=== PATIENT | female | born 1960 | race African-American/Black ===

== ENCOUNTER 2020-09-12 06:20 | Inpatient (IN) | payer MEDICARE ==
[2020-09-12] MEDS ORDERED: Ondansetron PF 4 MG/2 ML Vial ONE (06:54)
[2020-09-12] MEDS ORDERED: Morphine 4 MG/ML VIAL ONE (06:54)
[2020-09-12 07:03] LABS: #Basophils 0.1 thou/uL (0.0-0.2); #Eosinphils 0.1 thou/uL (0.0-0.7); #Lymphocytes 1.4 thou/uL (1.20-3.40); #Monocytes 0.3 thou/uL (0.11-0.59); #Neutrophils 4.2 thou/uL (1.40-6.50); %Basophils 1.4 % (0.0-1.0); %Eosinophils 1.3 % (0.0-10.0); %Lymphocytes 23.8 % (21.0-51.0); %Monocytes 4.5 % (0.0-10.0); Hemoglobin 10.9 g/dL (12.0-16.0); Mean Corpuscular HGB CONC 31.3 g/dL (32.0-36.0); Mean Corpuscular Hemoglobin 23.8 pg (27.0-31.0); Mean Platelet Volume 8.6 fL (7.4-10.4); Platelet Count 206 thou/uL (130-400); RBC Distribution Width 13.8 % (11.5-14.5); Red Blood Cell (RBC) Count 4.59 mill/uL (4.20-5.40)
[2020-09-12 07:27] LABS: ALT (SGPT) 19 U/L (8-55); AST (SGOT) 33 U/L (5-34); Albumin 3.6 g/dL (3.4-4.8); Alkaline Phosphatase 109 U/L (40-110); Anion Gap 13 mmol/L (10-20); BUN (Urea Nitrogen) 22 mg/dL (9.8-20.1); Bilirubin, Total 0.3 mg/dL (0.2-1.2); Calc. Creatinine Clearance 0 mL/min (70-130); Calcium 10.1 mg/dL (7.8-10.44); Carbon Dioxide 20 mmol/L (23-31); Chloride 107 mmol/L (98-107); Estimated GFR-MDRD 50; Globulin 3.9 g/dL (2.4-3.5); Glucose 183 mg/dL (80-115); Lipase 72 U/L (8-78); Potassium 5.2 mmol/L (3.5-5.1); Protein, Total 7.5 g/dL (6.0-8.3); Sodium 135 mmol/L (136-145)
[2020-09-12 07:29] LABS: Bacteria/HPF None Seen HPF (None Seen); Bilirubin Negative (Negative); Blood, Urine Trace (Negative); Clarity Clear (Clear); Glucose, Urine (Dipstick) Normal (Negative); Ketone, Urine Negative (Negative); Leukocyte Negative Leu/uL (Negative); Nitrite Negative (Negative); Protein, Urine (Dipstick) 100 mg/dL (Neg-Trace); RBC/HPF 0-3 HPF (0-3); Specific Gravity, Urine 1.019 (1.002-1.036); Squamous Epithelial None Seen HPF (0-3); Urobilinogen Normal mg/dL (Less than 2); WBC/HPF 0-3 HPF (0-3)
--- NOTE | 2020-09-12 08:07 | CT ---
CT ABDOMEN WITH CONTRAST CT PELVIS WITH CONTRAST: DATE: 09/12/2020 HISTORY: 60-year-old female with diffuse abdominal pain, nausea, and vomiting. COMPARISON: 05/21/2019. TECHNIQUE: IV injection of iodinated contrast media: administered. Oral contrast media:Not administered FINDINGS: Whereas previously there was a short loop of bowel slightly to the right of midline at the ventral he rnia, now there is a short loop of bowel slightly to the left of midline at a new ventral hernia where there is a suture line. The efferent loop and all distal ileal loops are collapsed, while the a fferent loop and proximal loops aren't dilated. Afferent dilated small bowel loop is fecal size. More proximal small bowel loops are filled with air and fluid. Caliber of 3 cm. Suture line along narrowed gastric channel. No major pathology identified involving liver, kidneys, pancreas, spleen, abdominal aorta, appendix, or urinary bladder. There is a 1.5 cm left adrenal nodule, unchanged. No ascites or pneumoperitoneum. No pleural effusion or basilar pulmonary consolidation. IMPRESSION: 1. Small bowel obstruction at ventral hernia. 2.. Status post vertical sleeve gastrectomy.
[2020-09-12] MEDS ORDERED: Midazolam HCl 2 mg/2 ml Vial ONE (09:02)
--- NOTE | 2020-09-12 10:09 | RAD ---
EXAM: Single view of the chest HISTORY: Diffuse abdominal pain with nausea and vomiting COMPARISON: 05/21/[address] abdomen/pelvis 09/12/2020 FINDINGS: Single view of the chest shows an enlarged cardiomediastinal silhouette. The lung apices ar e excluded. The patient is status post sternotomy. An NG tube is seen with its tip in the stomach. No free air is seen beneath the hemidiaphragms. There is no evidence of consolidation, mass, or pleur al effusion. Degenerative changes are seen in the spine. IMPRESSION: NG tube located in the stomach.
[2020-09-12] MEDS ORDERED: Iopamidol-370 76% 500 ML 1 ML ONE (10:44)
[2020-09-12] MEDS ORDERED: Morphine 2 MG/ML VIAL SLOW IVP PRN (10:50)
[2020-09-12] MEDS ORDERED: Insulin Regular 300 UNITS/3 ML VIAL SC PRN (10:50)
[2020-09-12] MEDS ORDERED: Promethazine HCl 25 MG/ML VIAL IM PRN (10:50)
[2020-09-12] MEDS ORDERED: hydrALAZINE 20 MG/ML VIAL SLOW IVP PRN (10:50)
[2020-09-12] MEDS ORDERED: cefOXitin 2 GM in Sodium Chloride 0.9% 100 ML IVPB SCH (11:00)
--- NOTE | 2020-09-12 12:41 | HP ---
CHIEF COMPLAINT: Nausea, vomiting, and abdominal pain. HISTORY OF PRESENT ILLNESS: The patient is a 60-year-old morbidly obese female who a year ago had incarcerated ventral hernia repaired while she was on Eliquis and she had to be returned to the OR for massive bleeding, 8-unit bleed. She is still on Eliquis. She said that over the last couple of months, she has been having intermittent bloating and then developed severe pain over the last 24 hours. She had a small bowel movement this morning. It has been at least 2 days since she passed flatus. She last took Eliquis last night. PAST MEDICAL HISTORY: Morbid obesity, diabetes, hypertension, atrial fibrillation, coronary artery disease, fibromyalgia, sleep apnea, and she has had a pulmonary embolus. PAST SURGICAL HISTORY: Includes CABG, sleeve gastrectomy, and ventral hernia repairs. MEDICATIONS: Include: 1. Eliquis. 2. Alprazolam. PHYSICAL EXAMINATION: VITAL SIGNS: She is afebrile, pulse 63, blood pressure 179/80. GENERAL: Morbidly obese. HEENT: She has a small NG tube in her nose, draining minimal fluid. LUNGS: Clear. HEART: Regular rate and rhythm. ABDOMEN: Obese and soft. She has swelling just above the umbilicus underneath a well-healed surgical scar. Mildly tender, not reducible. DIAGNOSTIC DATA: The CT scan shows a high-grade small bowel obstruction. No evidence of strangulation. CT scan again that shows obstruction. LABORATORY DATA: White count 6, H and H 10 and 34, platelet count 206. potassium of 5.2, glucose of 183. Creatinine was 1.3. ASSESSMENT: Small bowel obstruction and anticoagulation. PLAN: Admit. NG suction in the morning unless she gets sicker than, we opted to take her tonight. Check her COVID status. I called Dr. Thompson, Cardiothoracic Surgery regarding a perioperative filter. He did not feel like that was necessary that we should probably consider just low-dose Lovenox perioperatively. Job ID: [id number]
[2020-09-12] MEDS ORDERED: cefOXitin Sodium/Dextrose,Iso 2 GM in Premix Bag 1 BAG IVPB SCH (13:00)
[2020-09-12] MEDS: Ondansetron PF 4 MG/2 ML Vial IVP PRN (13:48)
[2020-09-12] MEDS: Morphine 4 MG/ML VIAL SLOW IVP PRN ×3 (14:18→23:07)
[2020-09-12 14:47] VITALS: BMI 35.6
--- NOTE | 2020-09-12 14:48 | PDOC.HOSPP ---
- Subjective Encounter Date: 09/12/20 Encounter Time: 13:45 Subjective: Patient up in bed states that she has been having abdominal pain going from on for about a month however for the last few days her abdominal pain has gotten worse. She also complains of nausea vomiting which has worsened in the past couple days. She denies any fevers or chills. She states that she has been having limited bowel movement. Patient's last Eliquis dose was last night. She states that she has had a temporary IVC filter which was then removed. - Objective Result Diagrams: 09/12/20 06:54 09/12/20 06:54 Hospitalist ROS - Review of Systems Cardiovascular: denies: chest pain, palpitations, orthopnea, paroxysmal noc. dyspnea, edema, light headedness, other Gastrointestinal: reports: nausea, vomiting, abdominal pain, constipation. denies: diarrhea, melena, hematochezia, other - Medication Medications: Active Medications Generic Name Dose Route Start Last Admin Trade Name Freq PRN Reason Stop Dose Admin Morphine Sulfate 4 mg 09/12/20 10:50 09/12/20 14:18 Morphine 4 Mg/Ml Vial SLOW IVP 4 mg Q2H PRN Administration Moderate Pain (4-6) Ondansetron HCl 4 mg 09/12/20 10:50 09/12/20 13:48 Ondansetron Pf 4 Mg/2 Ml Vial IVP 4 mg Q6H PRN Administration Nausea/Vomiting - Exam Neck: negative: supple, symmetric, no JVD, no thyromegaly, no lymphadenopathy, no carotid bruit, JVD Heart: negative: RRR, no murmur, no gallops, no rubs, normal peripheral pulses, irregular, diminshed peripheral pulses, murmur present, II/IV, III/IV Respiratory: negative: CTAB, no wheezes, no rales, no ronchi, normal chest expansion, no tachypnea, normal percussion, rales, rhonchi, tachypneic, wheezes Gastrointestinal: soft, diminished bowl sounds Gastrointestinal - other findings: Mild abdominal pain on palpation all over. Extremities: 1+ LE edema Hosp A/P (1) Abdominal pain Code(s): R10.9 - UNSPECIFIED ABDOMINAL PAIN Status: Acute (2) Small bowel obstruction Code(s): K56.609 - UNSP INTESTNL OBST, UNSP TO PARTIAL VERSUS COMPLETE OBST Status: Acute (3) A-fib Code(s): I48.91 - UNSPECIFIED ATRIAL FIBRILLATION Status: Acute (4) Postoperative haemorrhage Code(s): VSB6376 - Status: Acute (5) Postoperative haemorrhage Code(s): VUB4481 - Status: Acute (6) Pulmonary embolism Code(s): I26.99 - OTHER PULMONARY EMBOLISM WITHOUT ACUTE COR PULMONALE Status: Acute (7) Diabetes Code(s): E11.9 - TYPE 2 DIABETES MELLITUS WITHOUT COMPLICATIONS Status: Acute (8) CAD (coronary artery disease) Code(s): I25.10 - ATHSCL HEART DISEASE OF [place] CORONARY ARTERY W/O ANG PCTRS Status: Acute - Plan Patient has had pulmonary embolism in 2002 according to her she states it was post surgery. She also has a history of atrial fibrillation underwent an ablation in 2014. She follows up with cardiology and electrophysiology. Patient currently is in normal sinus rhythm. She is on Eliquis 2.5 twice daily. Per records indicates that patient was on anticoagulation unclear if she was on Coumadin or Eliquis this was in May 2019. She underwent emergent surgery for incarcerated umbilical hernia. Postoperative her hospital course was complicated with massive bleeding. I will hold her Eliquis for now. She is currently in sinus rhythm. We will put on SCDs for now. She has been encouraged to ambulate. I believe Lovenox for DVT prophylaxis should be okay until surgeon is okay to resume anticoagulation.
[2020-09-12] MEDS ORDERED: Dextrose 50% Abboject 50 ML SYRINGE SLOW IVP PRN (14:50)
[2020-09-12] MEDS ORDERED: Dextrose 5% in Water 1,000 ML IV PRN (14:50)
--- NOTE | 2020-09-12 15:22 | RAD ---
XR Abdomen 1 View/KUB History: NG tube placement Comparison: Radiograph May 26, 2019 Findings: Enteric tube tip in gastric body. Mildly distended loops of small bowel throughout the abdo men. Multiple midline sternotomy wires. Evaluation for free air is limited without an upright exam. Lucenc y along the right lower hemiabdomen may be due to asymmetric increased fat along the right paracolic gutter. Impression: Enteric tube tip gastric body/fundus in good position.
[2020-09-12] MEDS: Sodium Chloride 0.9% 1,000 ML IV SCH (16:00)
[2020-09-12] MEDS: Famotidine/PF 20 mg/2ml Vial SLOW IVP SCH (20:07)
[2020-09-12] MEDS: Famotidine 20 MG TAB PO SCH (20:45)
--- NOTE | 2020-09-12 22:20 | CON ---
DATE OF CONSULTATION: HISTORY OF PRESENT ILLNESS: The patient is a very pleasant 60-year-old woman with history of coronary artery bypass surgery, who presented with abdominal discomfort and needs to undergo surgery. The patient has a previous history of coronary artery disease. She had coronary artery bypass graft surgery x4, BARRETT to the LAD, radial graft to a diagonal, saphenous vein graft to ramus and RCA. The patient has subsequently done very well. She did develop atrial fibrillation. She underwent radiofrequency ablation for atrial fibrillation. The patient has been on chronic medical therapy. She presented with abdominal discomfort and needs to undergo surgery. The patient denies having any chest pain or dyspnea. PAST MEDICAL HISTORY: 1. Coronary artery disease. 2. Diabetes mellitus. 3. History of pulmonary embolus. 4. Sleep apnea. PAST SURGICAL HISTORY: Hernia surgery, , coronary artery bypass surgery,and gastric sleeve surgery. ALLERGIES: NONE. MEDICATIONS: See nursing list. FAMILY HISTORY: Positive family history of coronary artery disease. PHYSICAL EXAMINATION: GENERAL AND VITAL SIGNS: This is an obese woman, in no acute distress with a blood pressure of 136/70. NECK: No jugular venous distention. LUNGS: Clear to auscultation. HEART: Regular rate and rhythm. Normal S1 and S2. No murmurs. ABDOMEN: Distended. EXTREMITIES: Showed trace edema. LABORATORY DATA: Sodium 135, potassium 4.2, chloride 107, bicarbonate 20, BUN 22, creatinine 1.3, glucose 183. White blood cell count 6.0, hemoglobin 10.9, hematocrit 34.9, and platelets 206. EKG reveals normal sinus rhythm with poor R-wave progression. No acute ST-T wave changes. IMPRESSION: 1. Small bowel obstruction. 2. History of coronary artery bypass surgery x4. 3. History of atrial fibrillation. 4. Hypertension. 5. Renal insufficiency. 6. Diabetes mellitus. 7. Dyslipidemia. This patient presents with abdominal discomfort and needs to undergo surgery. This patient has previously undergone gastric bypass surgery and probably has adhesions. From a cardiac standpoint, I would be hesitant to proceed with surgery unless absolutely necessary before Eliquis is out of her system. It is recommended to be off at least 48 hours and preferably 72 hours. I will discuss this with Dr. Woodruff. We will follow this patient with you through her hospitalization. Job ID: [id number] [facility]
[2020-09-12 23:45] LABS: SARS-CoV-2 MS2 Positive; SARS-CoV-2 N Gene Negative; SARS-CoV-2 S Gene Negative; SARS-CoV-2 by NAA Not Detected (NotDetected); SARS-CoV-2 orf1ab Negative
[2020-09-13] MEDS: Morphine 4 MG/ML VIAL SLOW IVP PRN (04:40)
[2020-09-13] MEDS: Sodium Chloride 0.9% 1,000 ML IV SCH ×3 (04:41→16:29)
[2020-09-13] MEDS: Ondansetron PF 4 MG/2 ML Vial IVP PRN (05:00)
[2020-09-13 07:03] LABS: Hemoglobin 9.9 g/dL (12.0-16.0); Mean Corpuscular HGB CONC 30.4 g/dL (32.0-36.0); Mean Corpuscular Hemoglobin 23.7 pg (27.0-31.0); Mean Corpuscular Volume 78.1 fL (78.0-98.0); Mean Platelet Volume 8.1 fL (7.4-10.4); Platelet Count 164 thou/uL (130-400); RBC Distribution Width 13.9 % (11.5-14.5); Red Blood Cell (RBC) Count 4.19 mill/uL (4.20-5.40); White Blood Cell (WBC) Count 5.6 thou/uL (4.8-10.8)
[2020-09-13] MEDS ORDERED: Lidocaine 1% w/Epinephrine 1:100K 20 ML VIAL ONE (07:06)
[2020-09-13] MEDS ORDERED: Bupivacaine 0.25% HCL 30 ML VIAL ONE (07:06)
[2020-09-13 07:14] LABS: Anion Gap 9 mmol/L (10-20); BUN (Urea Nitrogen) 11 mg/dL (9.8-20.1); Calc. Creatinine Clearance 93 mL/min (70-130); Calcium 9.6 mg/dL (7.8-10.44); Carbon Dioxide 23 mmol/L (23-31); Chloride 113 mmol/L (98-107); Estimated GFR-MDRD 69; Glucose 81 mg/dL (80-115); Sodium 141 mmol/L (136-145)
[2020-09-13 07:56] LABS: Band 1 % (5-11); Eosinophils 3 % (0-10); Hypochromia SLIGHT = 6-15 cells (100X) (0-5/hpf); Lymphocytes 50 % (21-51); MDiff Complete? YES; Monocytes 9 % (0-10); Neutrophil 35 % (42-75); Platelet Morphology Comment Appears Adequate; Polychromasia SLIGHT = 2-3 cells (100X) (0-2/hpf)
--- NOTE | 2020-09-13 08:29 | PDOC.GSPN ---
Surgery Progress Note: Subj - Subjective Patient reports: no new complaints, positive flatus, nausea, no bowel movement Narrative: Ms. Crespo denies worsening of abdominal pain since yesterday. She states that her pain is currently 8/10 in severity with morphine 4 mg (08/12 yesterday). She passed flatus this morning. She has not had a bowel movement. No episodes of vomiting since yesterday; nausea is better controlled with ondansetron. She reports cough this morning which she feels is due to throat irritation from the NG tube. She has not been ambulating in the room or hallway. Surgery Progress Note: Obj - Vital signs Vital signs: Vital Signs - Most Recent Temp Pulse Resp BP Pulse Ox 98.3 F 62 20 121/70 100 09/13/20 00:00 09/13/20 00:00 09/13/20 00:00 09/13/20 00:00 09/13/20 00:00 - Physical Exam General: no distress, moderate pain, obese Cardiovascular: regular rate and rhythm Respiratory: clear to auscultation, normal expansion, normal respiratory effort Abdomen: soft, decreased bowel sounds (Decreased in LLQ, present in other quadrants), tender (diffusely tender to mild palpation, worse near umbilicus) Psychiatric: oriented to time, oriented to person, oriented to place, speech is normal Surgery Progress Note: Results - Labs Result Diagrams: 09/13/20 06:38 09/13/20 06:38 Lab results: Laboratory Results - last 12 hr 09/12/20 09/13/20 09/13/20 11:03 04:56 06:38 WBC RBC Hgb Hct MCV MCH MCHC RDW Plt Count MPV Neutrophils % (Manual) Band Neuts % (Manual) Lymphocytes % (Manual) Monocytes % (Manual) Eosinophils % (Manual) Basophils % (Manual) Lymphocytes # Hypochromia Plt Morphology Comment Polychromasia Sodium 141 Potassium 4.0 Chloride 113 H Carbon Dioxide 23 Anion Gap 9 L BUN 11 Creatinine 0.99 Estimated GFR (MDRD) 69 Glucose 81 POC Glucose 104 H Calcium 9.6 SARS-CoV-2 (PCR) Not Detected 09/13/20 06:38 WBC 5.6 RBC 4.19 L Hgb 9.9 L Hct 32.7 L MCV 78.1 MCH 23.7 L MCHC 30.4 L RDW 13.9 Plt Count 164 MPV 8.1 Neutrophils % (Manual) 35 L Band Neuts % (Manual) 1 L Lymphocytes % (Manual) 50 Monocytes % (Manual) 9 Eosinophils % (Manual) 3 Basophils % (Manual) 2 Lymphocytes # Not Reportable Hypochromia SLIGHT = 6-15 cells Plt Morphology Comment Appears Adequate Polychromasia SLIGHT = 2-3 cells Sodium Potassium Chloride Carbon Dioxide Anion Gap BUN Creatinine Estimated GFR (MDRD) Glucose POC Glucose Calcium SARS-CoV-2 (PCR) Surgery Progress Note: A/P - Plan Plan: The plan is to proceed with exploratory laparotomy and repair of incarcerated ventral hernia this morning. Ms. Crespo has now been off Eliquis for approx 36 hours. She has not had worsening of pain since yesterday and has remained afebrile with stable vital signs. She has been informed about the risks and benefits of the procedure.
[2020-09-13] MEDS ORDERED: Fentanyl 100 MCG/2 ML VIAL ONE ×3 (08:35→11:08)
[2020-09-13] MEDS ORDERED: cefOXitin Sodium/Dextrose 2 GM/50 ML BAG ONE (09:07)
[2020-09-13] MEDS ORDERED: Glycopyrrolate 0.2 MG/ML 5 ML SYRINGE ONE (09:18)
[2020-09-13] MEDS ORDERED: Dexamethasone 20 MG/5 ML VIAL ONE (09:18)
[2020-09-13] MEDS ORDERED: Metoclopramide HCl 10 MG/2 ML VIAL ONE ×2 (09:18→10:26)
[2020-09-13] MEDS ORDERED: Bupivacaine HCl 0.5%/Epinephrine 1:200,000/PF 30 ml Vial ONE (09:18)
[2020-09-13] MEDS ORDERED: PHENYLEPHRINE-NS 100 MCG/ML 10 ML SYRINGE ONE (09:18)
[2020-09-13] MEDS ORDERED: Rocuronium Bromide 10 MG/ML (10ML VIAL) ONE (09:18)
[2020-09-13] MEDS ORDERED: PROPOFOL 200 MG/20 ML VIAL ONE (09:18)
[2020-09-13] MEDS ORDERED: Ondansetron PF 4 MG/2 ML Vial ONE (09:18)
[2020-09-13] MEDS ORDERED: Lidocaine 1% PF 5 ML VIAL ONE (09:18)
[2020-09-13] MEDS: Famotidine/PF 20 mg/2ml Vial SLOW IVP SCH ×2 (09:52→21:24)
[2020-09-13] MEDS: Famotidine 20 MG TAB PO SCH ×2 (09:52→21:32)
[2020-09-13] MEDS ORDERED: hydrALAZINE 20 MG/ML VIAL SLOW IVP PRN (10:23)
[2020-09-13] MEDS ORDERED: Ondansetron PF 4 MG/2 ML Vial IVP PRN (10:23)
[2020-09-13] MEDS ORDERED: Promethazine HCl 25 MG/ML VIAL IM PRN ×2 (10:23→12:00)
[2020-09-13] MEDS ORDERED: SUGAMMADEX SODIUM 200 MG/2 ML VIAL ONE (10:24)
[2020-09-13] MEDS ORDERED: Promethazine HCl 25 MG/ML VIAL ONE (10:27)
--- NOTE | 2020-09-13 10:50 | OP ---
DATE OF PROCEDURE: 09/13/2020 PREOPERATIVE DIAGNOSIS: Incarcerated hernia with small bowel obstruction. PROCEDURES PERFORMED: 1. Exploratory laparotomy. 2. Removal of painful granuloma. 3. Repair of recurrent ventral hernia. 4. Lysis of adhesions. INDICATIONS: The patient is a 60-year-old morbidly obese female who presented with abdominal pain, nausea, vomiting, and a CT scan showing an incarcerated ventral hernia. FINDINGS: The area where she had preoperatively indicated was the area of pain and swelling, was actually a painful granuloma. The actual hernia was much lower just below the umbilicus. DESCRIPTION OF PROCEDURE: Preoperatively in the preoperative holding area, the swollen area was marked with an indelible ink. She was taken to the operating room where she underwent general endotracheal anesthesia. She was placed in the supine position. Her abdomen was prepped and draped in the usual fashion. An upper midline incision was performed over the marked area. Subcu divided sharply. The nodule was dissected out and it was not a hernia, it was a granuloma. This was excised. The fascia was intact in this region, so I had to extend the incision inferiorly. Due to her morbid obesity, I could not feel the hernia. The incision was extended and then I encountered a hernia sac. There was some edema around this hernia sac. The hernia sac was opened and it was buttressed circumferentially with old mesh, which had dehisced. There was a loop of bowel in this hernia sac, that was adherent with adhesions. The adhesions were lysed sharply with Metzenbaum scissors to free up the small bowel and reduce it. Hemostasis was assured. The defect was closed, which was very rigid mesh on all 4 sides. It was closed transversely with #2 nylon transversely [id number]. Then, the fascia was closed over the mesh with a running #1 prolene. Hemostasis was assured. The wound thoroughly irrigated. Subcu reapproximated with interrupted 3-0 Vicryl and the skin closed with skin angelina. A sterile bandage was applied. The patient tolerated the procedure well, transferred to Recovery in good condition. Sponge and needle count verified correct x2. Job ID: [id number]
[2020-09-13] MEDS ORDERED: HYDROmorphone 2 MG/ML VIAL ONE (11:41)
[2020-09-13] MEDS ORDERED: HYDROmorphone 10 mg/100 ml CADD IVPB PRN (12:00)
[2020-09-13 15:09] LABS: Band 5 % (5-11); Hemoglobin 10.6 g/dL (12.0-16.0); Hypochromia SLIGHT = 6-15 cells (100X) (0-5/hpf); Lymphocytes 7 % (21-51); MDiff Complete? YES; Mean Corpuscular HGB CONC 30.1 g/dL (32.0-36.0); Mean Corpuscular Hemoglobin 23.6 pg (27.0-31.0); Mean Corpuscular Volume 78.3 fL (78.0-98.0); Mean Platelet Volume 8.9 fL (7.4-10.4); Monocytes 2 % (0-10); Neutrophil 86 % (42-75); Platelet Count 170 thou/uL (130-400); Platelet Morphology Comment Appears Adequate; Polychromasia SLIGHT = 2-3 cells (100X) (0-2/hpf); RBC Distribution Width 14.1 % (11.5-14.5); Red Blood Cell (RBC) Count 4.49 mill/uL (4.20-5.40); Target Cells MODERATE= 6-15 cells (100X) (0-1/hpf); White Blood Cell (WBC) Count 7.8 thou/uL (4.8-10.8)
[2020-09-13] MEDS: Ketorolac Tromethamine 30 MG/ML VIAL IVP SCH ×3 (15:47→23:36)
[2020-09-13] MEDS: cefOXitin Sodium/Dextrose,Iso 2 GM in Premix Bag 1 BAG IVPB SCH (16:29)
[2020-09-13] MEDS: HumaLOG 300 UNITS/3 ML VIAL SC PRN (18:44)
--- NOTE | 2020-09-13 18:53 | PDOC.HOSPP ---
- Subjective Encounter Date: 09/13/20 Encounter Time: 18:51 Subjective: pt up in bed complain so pain to her abdomen. - Objective Vital Signs & Weight: Vital Signs (12 hours) Temp Pulse Resp BP Pulse Ox 09/13/20 18:07 67 149/56 H 100 09/13/20 17:29 67 142/79 H 100 09/13/20 17:14 73 146/74 H 100 09/13/20 16:59 67 143/77 H 100 09/13/20 16:44 67 145/80 H 100 09/13/20 16:15 98.3 F 68 16 152/71 H 100 09/13/20 07:20 98.3 F 61 14 126/71 98 09/13/20 07:15 97 Weight Weight 217 lb 13.067 oz I&O: 09/12/20 09/13/20 09/14/20 06:59 06:59 06:59 Intake Total 1000 Output Total 1650 Balance -650 Result Diagrams: 09/13/20 14:30 09/13/20 06:38 Additional Labs: Accuchecks 09/13/20 09/13/20 09/12/20 10:33 04:56 19:23 POC Glucose 81 104 H 72 Hospitalist ROS - Review of Systems Cardiovascular: denies: chest pain, palpitations, orthopnea, paroxysmal noc. dyspnea, edema, light headedness, other Gastrointestinal: reports: abdominal pain - Medication Medications: Active Medications Generic Name Dose Route Start Last Admin Trade Name Freq PRN Reason Stop Dose Admin Famotidine 20 mg 09/12/20 21:00 09/13/20 09:52 Famotidine 20 Mg Tab PO Not Given Q12HR EDMAR Famotidine 20 mg 09/12/20 21:00 09/13/20 09:52 Famotidine/Pf 20 Mg/2ml Vial SLOW IVP Not Given Q12HR EDMAR Sodium Chloride 1,000 mls @ 120 mls/hr 09/13/20 10:30 09/13/20 16:29 Normal Saline 0.9% IV 1,000 mls .Q8H20M EDMAR Administration Cefoxitin Sodium/Dextrose 2 gm 50 mls @ 100 mls/hr 09/13/20 17:00 09/13/20 16:29 / Device IVPB 09/14/20 01:29 50 mls 0100,1700 EDMAR Administration Ketorolac Tromethamine 15 mg 09/13/20 12:00 09/13/20 15:47 Ketorolac Tromethamine 30 Mg/Ml Vial IVP 09/16/20 12:01 Not Given Q6HR EDMAR - Exam Heart: negative: RRR, no murmur, no gallops, no rubs, normal peripheral pulses, irregular, diminshed peripheral pulses, murmur present, II/IV, III/IV Respiratory: negative: CTAB, no wheezes, no rales, no ronchi, normal chest expansion, no tachypnea, normal percussion, rales, rhonchi, tachypneic, wheezes Gastrointestinal: soft, normal bowel sounds Gastrointestinal - other findings: abdomen dressing intact Extremities: 1+ LE edema Hosp A/P (1) Abdominal pain Code(s): R10.9 - UNSPECIFIED ABDOMINAL PAIN Status: Acute (2) Small bowel obstruction Code(s): K56.609 - UNSP INTESTNL OBST, UNSP TO PARTIAL VERSUS COMPLETE OBST Status: Acute (3) A-fib Code(s): I48.91 - UNSPECIFIED ATRIAL FIBRILLATION Status: Acute (4) Postoperative haemorrhage Code(s): [id number] - Status: Acute (5) Postoperative haemorrhage Code(s): BGM0806 - Status: Acute (6) Pulmonary embolism Code(s): I26.99 - OTHER PULMONARY EMBOLISM WITHOUT ACUTE COR PULMONALE Status: Acute (7) Diabetes Code(s): E11.9 - TYPE 2 DIABETES MELLITUS WITHOUT COMPLICATIONS Status: Acute (8) CAD (coronary artery disease) Code(s): I25.10 - ATHSCL HEART DISEASE OF [place] CORONARY ARTERY W/O ANG PCTRS Status: Acute - Plan Patient has had pulmonary embolism in 2003 according to her she states it was post surgery. She also has a history of atrial fibrillation underwent an ablation in 2014. She follows up with cardiology and electrophysiology. Patient currently is in normal sinus rhythm. She is on Eliquis 2.5 twice daily. Per records indicates that patient was on anticoagulation unclear if she was on Coumadin or Eliquis this was in May 2019. She underwent emergent surgery for incarcerated umbilical hernia. Postoperative her hospital course was complicated with massive bleeding. I will hold her Eliquis for now. She is currently in sinus rhythm. We will put on SCDs for now. She has been encouraged to ambulate. I believe Lovenox for DVT prophylaxis should be okay until surgeon is okay to resume anticoagulation. 09/13 pt underwent exploratory laparotomy and lysis of adhesions. she has bagel maker pump. she is on scd for dvt ppx.
[2020-09-13] MEDS ORDERED: Famotidine 20 MG TAB PO SCH (21:00)
[2020-09-13] MEDS ORDERED: Famotidine/PF 20 mg/2ml Vial SLOW IVP SCH (21:00)
[2020-09-14] MEDS: cefOXitin Sodium/Dextrose,Iso 2 GM in Premix Bag 1 BAG IVPB SCH (00:28)
[2020-09-14] MEDS: diphenhydrAMINE 50 MG/ML VIAL IM/IV PRN ×3 (00:31→17:06)
[2020-09-14] MEDS: Sodium Chloride 0.9% 1,000 ML IV SCH ×3 (03:43→18:16)
[2020-09-14] MEDS: Ketorolac Tromethamine 30 MG/ML VIAL IVP SCH (05:50)
[2020-09-14 06:48] LABS: #Lymphocytes 1.3 thou/uL (1.20-3.40); #Monocytes 0.7 thou/uL (0.11-0.59); #Neutrophils 6.2 thou/uL (1.40-6.50); %Basophils 0.6 % (0.0-1.0); %Eosinophils 0.2 % (0.0-10.0); %Lymphocytes 16.2 % (21.0-51.0); %Monocytes 8.1 % (0.0-10.0); %Neutrophils 74.9 % (42.0-75.0); Hemoglobin 9.6 g/dL (12.0-16.0); Mean Corpuscular HGB CONC 30.5 g/dL (32.0-36.0); Mean Corpuscular Hemoglobin 23.7 pg (27.0-31.0); Mean Corpuscular Volume 77.7 fL (78.0-98.0); Mean Platelet Volume 8.8 fL (7.4-10.4); Platelet Count 163 thou/uL (130-400); RBC Distribution Width 13.9 % (11.5-14.5); Red Blood Cell (RBC) Count 4.05 mill/uL (4.20-5.40); White Blood Cell (WBC) Count 8.2 thou/uL (4.8-10.8)
[2020-09-14 06:51] LABS: Anion Gap 11 mmol/L (10-20); BUN (Urea Nitrogen) 14 mg/dL (9.8-20.1); Calc. Creatinine Clearance 68 mL/min (70-130); Calcium 9.6 mg/dL (7.8-10.44); Carbon Dioxide 20 mmol/L (23-31); Chloride 112 mmol/L (98-107); Estimated GFR-MDRD 48; Glucose 143 mg/dL (80-115); Potassium 4.6 mmol/L (3.5-5.1); Sodium 138 mmol/L (136-145)
--- NOTE | 2020-09-14 08:40 | PRG ---
DATE OF SERVICE: 09/14/2020 SUBJECTIVE: The patient is postop day #1 from laparotomy, lysis of adhesions, and repair of recurrent incarcerated hernia. She complains of incisional pain. She has had mild nausea. She is usually in a great deal of narcotics for pain. OBJECTIVE: VITAL SIGNS: Her temperature is 98.3, pulse 62, and blood pressure 101/65. GENERAL: She is awake and alert. She has a CPAP machine on. ABDOMEN: Nondistended. The dressing has a little bit of seepage underneath the tape, but is just very light serosanguinous. She has a Sunshine in place. NG is out. LABORATORY DATA: White count is 8.2, hemoglobin and hematocrit of 9.6 and 31, platelet count 163. Urine output is 1100. ASSESSMENT: Doing well, poor pain control. PLAN: Discontinue Sunshine. Increase Lovenox to 40 daily. PT for ambulation. Case Management consult. Physical Therapy consult. Job ID: [id number]
[2020-09-14] MEDS ORDERED: Enoxaparin Sodium 30 MG/0.3 ML SYRINGE SC SCH ×2 (09:00)
[2020-09-14] MEDS ORDERED: Enoxaparin Sodium 40 MG/0.4 ML SYRINGE SC SCH (09:00)
[2020-09-14] MEDS: Famotidine 20 MG TAB PO SCH ×2 (09:31→20:18)
[2020-09-14] MEDS: Famotidine/PF 20 mg/2ml Vial SLOW IVP SCH ×2 (09:31→20:19)
[2020-09-14] MEDS: Ondansetron PF 4 MG/2 ML Vial IVP PRN ×2 (09:52→17:07)
--- NOTE | 2020-09-14 13:00 | PDOC.HOSPP ---
- Subjective Encounter Date: 09/14/20 Encounter Time: 12:30 Subjective: pt up in bed ambulating. - Objective Vital Signs & Weight: Vital Signs (12 hours) Temp Pulse Resp BP Pulse Ox 09/14/20 12:06 98.7 F 69 18 144/77 H 100 09/14/20 08:11 98.1 F 62 20 119/63 98 09/14/20 04:53 98.3 F 62 16 101/65 100 Weight Weight 217 lb 13.067 oz I&O: 09/13/20 09/14/20 09/15/20 06:59 06:59 06:59 Intake Total 1000 1700 Output Total 1650 1095 120 Balance -650 605 -120 Result Diagrams: 09/14/20 06:00 09/14/20 06:00 Additional Labs: Accuchecks 09/14/20 09/14/20 09/13/20 12:10 04:50 22:08 POC Glucose 99 139 H 159 H 09/13/20 18:17 POC Glucose 190 H Hospitalist ROS - Review of Systems Cardiovascular: denies: chest pain, palpitations, orthopnea, paroxysmal noc. dyspnea, edema, light headedness, other Gastrointestinal: denies: nausea, vomiting, abdominal pain, diarrhea, constipation, melena, hematochezia, other Genitourinary: denies: dysuria, frequency, incontinence, hematuria, retention, other - Medication Medications: Active Medications Generic Name Dose Route Start Last Admin Trade Name Freq PRN Reason Stop Dose Admin Diphenhydramine HCl 25 mg 09/13/20 12:00 09/14/20 09:53 Diphenhydramine 50 Mg/Ml Vial IM/IV 25 mg Q3H PRN Administration Itching Famotidine 20 mg 09/12/20 21:00 09/14/20 09:31 Famotidine 20 Mg Tab PO Not Given Q12HR EDMAR Famotidine 20 mg 09/12/20 21:00 09/14/20 09:31 Famotidine/Pf 20 Mg/2ml Vial SLOW IVP 20 mg Q12HR EDMAR Administration Sodium Chloride 1,000 mls @ 120 mls/hr 09/13/20 10:30 09/14/20 03:43 Normal Saline 0.9% IV 1,000 mls .Q8H20M EDMAR Administration Insulin Human Lispro 0 units 09/12/20 14:50 09/13/20 18:44 Humalog 300 Units/3 Ml Vial SC 2 unit .MILD SLIDING SCALE PRN Administration Mild Correctional Scale Ketorolac Tromethamine 15 mg 09/13/20 12:00 09/14/20 05:50 Ketorolac Tromethamine 30 Mg/Ml Vial IVP 09/16/20 12:01 15 mg Q6HR EDMAR Administration Ondansetron HCl 4 mg 09/13/20 12:00 09/14/20 09:52 Ondansetron Pf 4 Mg/2 Ml Vial IVP 4 mg Q6H PRN Administration Nausea/Vomiting - Exam Neck: negative: supple, symmetric, no JVD, no thyromegaly, no lymphadenopathy, no carotid bruit, JVD Heart: negative: RRR, no murmur, no gallops, no rubs, normal peripheral pulses, irregular, diminshed peripheral pulses, murmur present, II/IV, III/IV Respiratory: negative: CTAB, no wheezes, no rales, no ronchi, normal chest expansion, no tachypnea, normal percussion, rales, rhonchi, tachypneic, wheezes Gastrointestinal: soft, diminished bowl sounds Gastrointestinal - other findings: mild tenderness all over Hosp A/P (1) Abdominal pain Code(s): R10.9 - UNSPECIFIED ABDOMINAL PAIN Status: Acute (2) Small bowel obstruction Code(s): K56.609 - UNSP INTESTNL OBST, UNSP TO PARTIAL VERSUS COMPLETE OBST Status: Acute (3) A-fib Code(s): I48.91 - UNSPECIFIED ATRIAL FIBRILLATION Status: Acute (4) Postoperative haemorrhage Code(s): [id number] - Status: Acute (5) Postoperative haemorrhage Code(s): [id number] - Status: Acute (6) Pulmonary embolism Code(s): I26.99 - OTHER PULMONARY EMBOLISM WITHOUT ACUTE COR PULMONALE Status: Acute (7) Diabetes Code(s): E11.9 - TYPE 2 DIABETES MELLITUS WITHOUT COMPLICATIONS Status: Acute (8) CAD (coronary artery disease) Code(s): I25.10 - ATHSCL HEART DISEASE OF [place] CORONARY ARTERY W/O ANG PCTRS Status: Acute - Plan Patient has had pulmonary embolism in 2002 according to her she states it was post surgery. She also has a history of atrial fibrillation underwent an ablation in 2014. She follows up with cardiology and electrophysiology. Patient currently is in normal sinus rhythm. She is on Eliquis 2.5 twice daily. Per records indicates that patient was on anticoagulation unclear if she was on Coumadin or Eliquis this was in May 2019. She underwent emergent surgery for incarcerated umbilical hernia. Postoperative her hospital course was complicated with massive bleeding. I will hold her Eliquis for now. She is currently in sinus rhythm. We will put on SCDs for now. She has been encouraged to ambulate. I believe Lovenox for DVT prophylaxis should be okay until surgeon is okay to resume anticoagulation. 09/13 pt underwent exploratory laparotomy and lysis of adhesions. she has foundation maker pump. she is on scd for dvt ppx. 09/14 will hold toradol for now since her creatinine has worsen a bit. pt is on foundation maker. will continue dvt ppx and scd. She has been encouraged to get up and move around.
[2020-09-14] MEDS: Ferrous Sulfate 325 MG TAB PO SCH (17:06)
[2020-09-14] MEDS ORDERED: HYDROmorphone 10 mg/100 ml CADD IVPB PRN (19:17)
[2020-09-14] MEDS: Carvedilol 6.25 MG TAB PO SCH (20:18)
[2020-09-15] MEDS: Sodium Chloride 0.9% 1,000 ML IV SCH ×3 (04:42→21:44)
[2020-09-15] MEDS: Ondansetron PF 4 MG/2 ML Vial IVP PRN ×3 (04:42→21:39)
[2020-09-15 05:56] LABS: #Basophils 0.1 thou/uL (0.0-0.2); #Eosinphils 0.2 thou/uL (0.0-0.7); #Lymphocytes 2.4 thou/uL (1.20-3.40); #Monocytes 0.4 thou/uL (0.11-0.59); #Neutrophils 2.8 thou/uL (1.40-6.50); %Basophils 0.9 % (0.0-1.0); %Eosinophils 3.6 % (0.0-10.0); %Lymphocytes 40.4 % (21.0-51.0); %Monocytes 7.2 % (0.0-10.0); %Neutrophils 47.9 % (42.0-75.0); Hemoglobin 8.8 g/dL (12.0-16.0); Mean Corpuscular Hemoglobin 23.6 pg (27.0-31.0); Mean Corpuscular Volume 76.1 fL (78.0-98.0); Mean Platelet Volume 8.6 fL (7.4-10.4); Platelet Count 146 thou/uL (130-400); Red Blood Cell (RBC) Count 3.71 mill/uL (4.20-5.40); White Blood Cell (WBC) Count 5.8 thou/uL (4.8-10.8)
[2020-09-15 06:21] LABS: Anion Gap 14 mmol/L (10-20); BUN (Urea Nitrogen) 12 mg/dL (9.8-20.1); Calc. Creatinine Clearance 89 mL/min (70-130); Calcium 9.1 mg/dL (7.8-10.44); Carbon Dioxide 15 mmol/L (23-31); Chloride 116 mmol/L (98-107); Estimated GFR-MDRD 65; Glucose 89 mg/dL (80-115); Potassium 4.5 mmol/L (3.5-5.1); Sodium 140 mmol/L (136-145)
--- NOTE | 2020-09-15 07:47 | PRG ---
DATE OF SERVICE: 09/15/2020 SUBJECTIVE: The patient reports still having quite a bit of pain, mild nausea, but she is passing gas. OBJECTIVE: VITAL SIGNS: Temperature 97.7, pulse 64, blood pressure 138/77. GENERAL: She is awake, alert. ABDOMEN: Soft, nondistended. Dressing dry. LABORATORY DATA: White count 5.8, H and H 8.8 and 28, platelet count of 146. Electrolytes are fine. ASSESSMENT: Status post repair of incarcerated ventral hernia. PLAN: Start clear liquids. Start Coreg, Eliquis. Probably tomorrow, start Lasix and Crestor. Job ID: [id number]
[2020-09-15] MEDS: Ferrous Sulfate 325 MG TAB PO SCH ×2 (08:54→15:42)
[2020-09-15] MEDS: Carvedilol 6.25 MG TAB PO SCH ×2 (08:54→19:55)
[2020-09-15] MEDS: Apixaban 5 MG TAB PO SCH ×2 (08:55→19:56)
[2020-09-15] MEDS: Multivit, Therapeutic 1 TAB PO SCH (08:55)
[2020-09-15] MEDS: Famotidine/PF 20 mg/2ml Vial SLOW IVP SCH ×2 (08:55→19:56)
[2020-09-15] MEDS: Famotidine 20 MG TAB PO SCH ×2 (08:55→20:49)
--- NOTE | 2020-09-15 14:53 | PDOC.HOSPP ---
- Subjective Encounter Date: 09/15/20 Encounter Time: 11:45 Subjective: pt up in chair feels well - Objective Vital Signs & Weight: Vital Signs (12 hours) Temp Pulse Resp BP BP BP Pulse Ox 09/15/20 12:19 97.9 F 59 L 16 153/50 H 98 09/15/20 08:54 133/77 09/15/20 08:00 97 09/15/20 07:43 97.5 F L 59 L 16 133/77 98 Weight Weight 217 lb 13.067 oz I&O: 09/14/20 09/15/20 09/16/20 06:59 06:59 06:59 Intake Total 1700 1200 Output Total 1095 1470 Balance 605 -270 Result Diagrams: 09/15/20 05:45 09/15/20 05:45 Additional Labs: Accuchecks 09/15/20 09/14/20 09/14/20 04:23 19:32 15:47 POC Glucose 91 92 99 Hospitalist ROS - Review of Systems Cardiovascular: denies: chest pain, palpitations, orthopnea, paroxysmal noc. dyspnea, edema, light headedness, other Gastrointestinal: denies: nausea, vomiting, abdominal pain, diarrhea, constipation, melena, hematochezia, other Genitourinary: denies: dysuria, frequency, incontinence, hematuria, retention, other - Medication Medications: Active Medications Generic Name Dose Route Start Last Admin Trade Name Freq PRN Reason Stop Dose Admin Apixaban 5 mg 09/15/20 09:00 09/15/20 08:55 Apixaban 5 Mg Tab PO 5 mg BID EDMAR Administration Carvedilol 12.5 mg 09/14/20 21:00 09/15/20 08:54 Carvedilol 6.25 Mg Tab PO 12.5 mg BID EDMAR Administration Diphenhydramine HCl 25 mg 09/13/20 12:00 09/14/20 17:06 Diphenhydramine 50 Mg/Ml Vial IM/IV 25 mg Q3H PRN Administration Itching Famotidine 20 mg 09/12/20 21:00 09/15/20 08:55 Famotidine 20 Mg Tab PO 20 mg Q12HR EDMAR Administration Famotidine 20 mg 09/12/20 21:00 09/15/20 08:55 Famotidine/Pf 20 Mg/2ml Vial SLOW IVP Not Given Q12HR EDMAR Ferrous Sulfate 325 mg 09/14/20 17:00 09/15/20 08:54 Ferrous Sulfate 325 Mg Tab PO 325 mg BID-WM EDMAR Administration Sodium Chloride 1,000 mls @ 120 mls/hr 09/13/20 10:30 09/15/20 08:55 Normal Saline 0.9% IV 1,000 mls .Q8H20M EDMAR Administration Insulin Human Lispro 0 units 09/12/20 14:50 09/13/20 18:44 Humalog 300 Units/3 Ml Vial SC 2 unit .MILD SLIDING SCALE PRN Administration Mild Correctional Scale Ketorolac Tromethamine 15 mg 09/13/20 12:00 09/14/20 05:50 Ketorolac Tromethamine 30 Mg/Ml Vial IVP 09/16/20 12:01 15 mg Q6HR EDMAR Administration Multivitamins 1 tab 09/15/20 09:00 09/15/20 08:55 Multivit, Therapeutic 1 Tab PO 1 tab DAILY EDMAR Administration Ondansetron HCl 4 mg 09/13/20 12:00 09/15/20 04:42 Ondansetron Pf 4 Mg/2 Ml Vial IVP 4 mg Q6H PRN Administration Nausea/Vomiting - Exam Heart: negative: RRR, no murmur, no gallops, no rubs, normal peripheral pulses, irregular, diminshed peripheral pulses, murmur present, II/IV, III/IV Respiratory: negative: CTAB, no wheezes, no rales, no ronchi, normal chest expansion, no tachypnea, normal percussion, rales, rhonchi, tachypneic, wheezes Gastrointestinal: negative: soft, non-tender, non-distended, normal bowel sounds, no palpable masses, no hepatomegaly, no splenomegaly, no bruit, no guarding, no rigidity, tender to palpation, distended, diminished bowl sounds, voluntary guarding Extremities: negative: no cyanosis, no clubbing, no edema, 1+ LE edema, 2+ LE edema, clubbing Hosp A/P (1) Abdominal pain Code(s): R10.9 - UNSPECIFIED ABDOMINAL PAIN Status: Acute (2) Small bowel obstruction Code(s): K56.609 - UNSP INTESTNL OBST, UNSP TO PARTIAL VERSUS COMPLETE OBST Status: Acute (3) A-fib Code(s): I48.91 - UNSPECIFIED ATRIAL FIBRILLATION Status: Acute (4) Postoperative haemorrhage Code(s): [id number] - Status: Acute (5) Postoperative haemorrhage Code(s): [id number] - Status: Acute (6) Pulmonary embolism Code(s): I26.99 - OTHER PULMONARY EMBOLISM WITHOUT ACUTE COR PULMONALE Status: Acute (7) Diabetes Code(s): E11.9 - TYPE 2 DIABETES MELLITUS WITHOUT COMPLICATIONS Status: Acute (8) CAD (coronary artery disease) Code(s): I25.10 - ATHSCL HEART DISEASE OF [place] CORONARY ARTERY W/O ANG PCTRS Status: Acute - Plan Patient has had pulmonary embolism in 2002 according to her she states it was post surgery. She also has a history of atrial fibrillation underwent an ablation in 2014. She follows up with cardiology and electrophysiology. Patient currently is in normal sinus rhythm. She is on Eliquis 2.5 twice daily. Per records indicates that patient was on anticoagulation unclear if she was on Coumadin or Eliquis this was in May 2019. She underwent emergent surgery for incarcerated umbilical hernia. Postoperative her hospital course was complicated with massive bleeding. I will hold her Eliquis for now. She is currently in sinus rhythm. We will put on SCDs for now. She has been encouraged to ambulate. I believe Lovenox for DVT prophylaxis should be okay un til surgeon is okay to resume anticoagulation. 09/13 pt underwent exploratory laparotomy and lysis of adhesions. she has starting sheet tank operator pump. she is on scd for dvt ppx. 09/14 will hold toradol for now since her creatinine has worsen a bit. pt is on starting sheet tank operator. will continue dvt ppx and scd. She has been encouraged to get up and move around. 09/15 pt's creatinine at baseline, eliquis restarted. will trend hh. pt tolerating clears encouraged to ambulate.
[2020-09-15] MEDS: diphenhydrAMINE 50 MG/ML VIAL IM/IV PRN (17:33)
[2020-09-15] MEDS: Rosuvastatin 20 MG TAB PO SCH (19:55)
[2020-09-16] MEDS: Sodium Chloride 0.9% 1,000 ML IV SCH ×3 (05:22→21:25)
[2020-09-16] MEDS: Ondansetron PF 4 MG/2 ML Vial IVP PRN (05:22)
[2020-09-16] MEDS ORDERED: DC PCA Order Set 1 EACH FS ONE (07:38)
[2020-09-16] MEDS ORDERED: HYDROcodone/Acetaminophen 10/325 mg Tablet PO PRN (07:38)
[2020-09-16] MEDS ORDERED: Morphine 4 MG/ML VIAL SLOW IVP PRN (07:38)
[2020-09-16 08:22] LABS: #Basophils 0.1 thou/uL (0.0-0.2); #Eosinphils 0.2 thou/uL (0.0-0.7); #Lymphocytes 2.2 thou/uL (1.20-3.40); #Monocytes 0.5 thou/uL (0.11-0.59); #Neutrophils 2.6 thou/uL (1.40-6.50); %Basophils 1.1 % (0.0-1.0); %Eosinophils 4.2 % (0.0-10.0); %Lymphocytes 38.8 % (21.0-51.0); %Monocytes 9.1 % (0.0-10.0); %Neutrophils 46.8 % (42.0-75.0); Mean Corpuscular HGB CONC 30.8 g/dL (32.0-36.0); Mean Corpuscular Hemoglobin 24.4 pg (27.0-31.0); Mean Corpuscular Volume 79.2 fL (78.0-98.0); Mean Platelet Volume 8.7 fL (7.4-10.4); Platelet Count 141 thou/uL (130-400); RBC Distribution Width 14.1 % (11.5-14.5); Red Blood Cell (RBC) Count 3.68 mill/uL (4.20-5.40); White Blood Cell (WBC) Count 5.5 thou/uL (4.8-10.8)
--- NOTE | 2020-09-16 08:45 | PRG ---
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 She had a large bowel movement that was fairly loose. She seems to be tolerating clear liquids. OBJECTIVE: VITAL SIGNS: Her temperature is 98.5, pulse 58, blood pressure 102/61. GENERAL: She is awake, alert. ABDOMEN: Soft, nondistended. The wound looks good. There is no evidence of erythema. ASSESSMENT: Doing well. PLAN: Full liquid diet. Wean off the SEAMING MACHINE OPERATOR pump. We will try p.o. pain medications and supplement with IV. Job ID: [id number]
[2020-09-16] MEDS: Famotidine 20 MG TAB PO SCH ×2 (09:04→20:09)
[2020-09-16] MEDS: Carvedilol 6.25 MG TAB PO SCH ×2 (09:09→20:09)
[2020-09-16] MEDS: Apixaban 5 MG TAB PO SCH ×2 (09:09→20:09)
[2020-09-16] MEDS: Ferrous Sulfate 325 MG TAB PO SCH ×2 (09:09→17:07)
[2020-09-16] MEDS: Multivit, Therapeutic 1 TAB PO SCH (09:09)
[2020-09-16] MEDS: Famotidine/PF 20 mg/2ml Vial SLOW IVP SCH ×2 (09:09→20:10)
[2020-09-16] MEDS: Ketorolac Tromethamine 30 MG/ML VIAL IVP SCH (12:37)
--- NOTE | 2020-09-16 14:46 | PDOC.HOSPP ---
- Subjective Encounter Date: 09/16/20 Encounter Time: 10:45 Subjective: pt up in chair feels nauseated. - Objective Vital Signs & Weight: Vital Signs (12 hours) Temp Pulse Resp BP BP BP Pulse Ox 09/16/20 09:09 112/68 09/16/20 08:00 98 09/16/20 07:38 98.1 F 64 16 112/68 98 09/16/20 04:52 98.5 F 58 L 20 102/61 92 L Weight Weight 217 lb 13.067 oz I&O: 09/15/20 09/16/20 09/17/20 06:59 06:59 06:59 Intake Total 1200 2090 Output Total 1470 Balance -270 0 Result Diagrams: 09/16/20 07:47 09/15/20 05:45 Additional Labs: Accuchecks 09/16/20 09/16/20 11:32 04:51 POC Glucose 116 H 78 Hospitalist ROS - Review of Systems Cardiovascular: denies: chest pain, palpitations, orthopnea, paroxysmal noc. dyspnea, edema, light headedness, other Gastrointestinal: reports: nausea Genitourinary: denies: dysuria, frequency, incontinence, hematuria, retention, other Musculoskeletal: denies: neck pain, shoulder pain, arm pain, back pain, hand pain, leg pain, foot pain, other - Medication Medications: Active Medications Generic Name Dose Route Start Last Admin Trade Name Freq PRN Reason Stop Dose Admin Apixaban 5 mg 09/15/20 09:00 09/16/20 09:09 Apixaban 5 Mg Tab PO 5 mg BID EDMAR Administration Carvedilol 12.5 mg 09/14/20 21:00 09/16/20 09:09 Carvedilol 6.25 Mg Tab PO 12.5 mg BID EDMAR Administration Diphenhydramine HCl 25 mg 09/13/20 12:00 09/15/20 17:33 Diphenhydramine 50 Mg/Ml Vial IM/IV 25 mg Q3H PRN Administration Itching Famotidine 20 mg 09/12/20 21:00 09/16/20 09:04 Famotidine 20 Mg Tab PO Not Given Q12HR EDMAR Famotidine 20 mg 09/12/20 21:00 09/16/20 09:09 Famotidine/Pf 20 Mg/2ml Vial SLOW IVP 20 mg Q12HR EDMAR Administration Ferrous Sulfate 325 mg 09/14/20 17:00 09/16/20 09:09 Ferrous Sulfate 325 Mg Tab PO 325 mg BID-WM EDMAR Administration Sodium Chloride 1,000 mls @ 50 mls/hr 09/16/20 07:39 09/16/20 09:10 Normal Saline 0.9% IV 1,000 mls .Q20H EDMAR Administration Insulin Human Lispro 0 units 09/12/20 14:50 09/13/20 18:44 Humalog 300 Units/3 Ml Vial SC 2 unit .MILD SLIDING SCALE PRN Administration Mild Correctional Scale Multivitamins 1 tab 09/15/20 09:00 09/16/20 09:09 Multivit, Therapeutic 1 Tab PO 1 tab DAILY EDMAR Administration Ondansetron HCl 4 mg 09/13/20 12:00 09/16/20 05:22 Ondansetron Pf 4 Mg/2 Ml Vial IVP 4 mg Q6H PRN Administration Nausea/Vomiting Rosuvastatin Calcium 80 mg 09/15/20 21:00 09/15/20 19:55 Rosuvastatin 20 Mg Tab PO 80 mg HS EDMAR Administration - Exam Heart: negative: RRR, no murmur, no gallops, no rubs, normal peripheral pulses, irregular, diminshed peripheral pulses, murmur present, II/IV, III/IV Respiratory: negative: CTAB, no wheezes, no rales, no ronchi, normal chest expansion, no tachypnea, normal percussion, rales, rhonchi, tachypneic, wheezes Gastrointestinal: soft, normal bowel sounds Gastrointestinal - other findings: mild pain on palpation in abdomen Extremities: 1+ LE edema Hosp A/P (1) Abdominal pain Code(s): R10.9 - UNSPECIFIED ABDOMINAL PAIN Status: Acute (2) Small bowel obstruction Code(s): K56.609 - UNSP INTESTNL OBST, UNSP TO PARTIAL VERSUS COMPLETE OBST Status: Acute (3) A-fib Code(s): I48.91 - UNSPECIFIED ATRIAL FIBRILLATION Status: Acute (4) Postoperative haemorrhage Code(s): [id number] - Status: Acute (5) Postoperative haemorrhage Code(s): [id number] - Status: Acute (6) Pulmonary embolism Code(s): I26.99 - OTHER PULMONARY EMBOLISM WITHOUT ACUTE COR PULMONALE Status: Acute (7) Diabetes Code(s): E11.9 - TYPE 2 DIABETES MELLITUS WITHOUT COMPLICATIONS Status: Acute (8) CAD (coronary artery disease) Code(s): I25.10 - ATHSCL HEART DISEASE OF [place] CORONARY ARTERY W/O ANG PCTRS Status: Acute - Plan Patient has had pulmonary embolism in 2002 according to her she states it was post surgery. She also has a history of atrial fibrillation underwent an ablation in 2014. She follows up with cardiology and electrophysiology. Patient currently is in normal sinus rhythm. She is on Eliquis 2.5 twice daily. Per records indicates that patient was on anticoagulation unclear if she was on Coumadin or Eliquis this was in May 2019. She underwent emergent surgery for incarcerated umbilical hernia. Postoperative her hospital course was co mplicated with massive bleeding. I will hold her Eliquis for now. She is currently in sinus rhythm. We will put on SCDs for now. She has been encouraged to ambulate. I believe Lovenox for DVT prophylaxis should be okay until surgeon is okay to resume anticoagulation. 09/13 pt underwent exploratory laparotomy and lysis of adhesions. 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 she is on scd for dvt ppx. 09/14 will hold toradol for now since her creatinine has worsen a bit. pt is on cattle dealer. will continue dvt ppx and scd. She has been encouraged to get up and move around. 09/15 pt's creatinine at baseline, eliquis restarted. will trend hh. pt tolerating clears encouraged to ambulate. 09/16 will continue eliquis for now, hh stable. pt encouraged to ambulate.
[2020-09-16] MEDS: diphenhydrAMINE 25 MG CAP PO PRN (20:08)
[2020-09-16] MEDS: Rosuvastatin 20 MG TAB PO SCH (20:09)
[2020-09-17] MEDS: diphenhydrAMINE 25 MG CAP PO PRN ×4 (00:02→23:59)
[2020-09-17] MEDS: HYDROcodone/Acetaminophen 10/325 mg Tablet PO PRN ×5 (00:02→23:54)
[2020-09-17] MEDS: Zolpidem Tartrate 5 MG TAB PO PRN (02:29)
[2020-09-17 06:06] LABS: #Eosinphils 0.2 thou/uL (0.0-0.7); #Lymphocytes 2.2 thou/uL (1.20-3.40); #Monocytes 0.4 thou/uL (0.11-0.59); #Neutrophils 1.7 thou/uL (1.40-6.50); %Basophils 0.6 % (0.0-1.0); %Eosinophils 5.2 % (0.0-10.0); %Lymphocytes 48.8 % (21.0-51.0); %Monocytes 8.3 % (0.0-10.0); %Neutrophils 37.2 % (42.0-75.0); Mean Corpuscular HGB CONC 30.9 g/dL (32.0-36.0); Mean Corpuscular Hemoglobin 23.7 pg (27.0-31.0); Mean Corpuscular Volume 76.5 fL (78.0-98.0); Platelet Count 140 thou/uL (130-400); RBC Distribution Width 14.1 % (11.5-14.5); White Blood Cell (WBC) Count 4.5 thou/uL (4.8-10.8)
[2020-09-17 06:29] LABS: Anion Gap 10 mmol/L (10-20); BUN (Urea Nitrogen) 11 mg/dL (9.8-20.1); Calc. Creatinine Clearance 92 mL/min (70-130); Calcium 8.9 mg/dL (7.8-10.44); Carbon Dioxide 19 mmol/L (23-31); Chloride 113 mmol/L (98-107); Estimated GFR-MDRD 68; Glucose 134 mg/dL (80-115); Magnesium 1.6 mg/dL (1.6-2.6); Phosphorus 3.6 mg/dL (2.3-4.7); Sodium 138 mmol/L (136-145)
--- NOTE | 2020-09-17 08:10 | PRG ---
DATE OF SERVICE: 09/17/2020 SUBJECTIVE: Ms. Truong is still complaining of nausea. Her pain is well controlled. She states that she is getting up and walking, able to urinate without difficulty. OBJECTIVE: VITAL SIGNS: She is afebrile. Vital signs are stable. ABDOMEN: Soft. It is mildly distended. The midline wound is healing well. There is no evidence of infection. LABORATORY DATA: White blood cell count is 4, hemoglobin is 8, normal differential. Creatinine is 1.0. ASSESSMENT: Status post incarcerated ventral hernia repair. PLAN: Continue full liquids until nausea improved. Encouraged ambulation. Job ID: [id number]
[2020-09-17] MEDS: Apixaban 5 MG TAB PO SCH ×2 (08:27→20:36)
[2020-09-17] MEDS: Famotidine 20 MG TAB PO SCH ×2 (08:27→20:36)
[2020-09-17] MEDS: Ferrous Sulfate 325 MG TAB PO SCH ×2 (08:27→15:36)
[2020-09-17] MEDS: Carvedilol 6.25 MG TAB PO SCH ×2 (08:27→20:35)
[2020-09-17] MEDS: Multivit, Therapeutic 1 TAB PO SCH (08:28)
[2020-09-17] MEDS: Famotidine/PF 20 mg/2ml Vial SLOW IVP SCH ×2 (08:28→20:36)
[2020-09-17 09:24] LABS: Hemoglobin 8.7 g/dL (12.0-16.0); Platelet Count 141 thou/uL (130-400)
--- NOTE | 2020-09-17 12:46 | PDOC.HOSPP ---
- Subjective Encounter Date: 09/17/20 Encounter Time: 10:30 Subjective: pt up in chair still feels nauseated. - Objective Vital Signs & Weight: Vital Signs (12 hours) Temp Pulse Resp BP BP BP Pulse Ox 09/17/20 08:27 133/65 09/17/20 08:00 99 09/17/20 07:37 97.1 F L 53 L 16 133/65 100 09/17/20 04:14 98.2 F 62 18 111/69 98 Weight Weight 217 lb 13.067 oz I&O: 09/16/20 09/17/20 09/18/20 06:59 06:59 06:59 Intake Total 2089 1081 Balance 2089 1081 Result Diagrams: 09/17/20 09:00 09/17/20 09:00 Additional Labs: Accuchecks 09/17/20 09/17/20 09/16/20 11:52 05:53 20:14 POC Glucose 143 H 108 H 130 H 09/16/20 16:06 POC Glucose 137 H Hospitalist ROS - Review of Systems Cardiovascular: denies: chest pain, palpitations, orthopnea, paroxysmal noc. dyspnea, edema, light headedness, other Gastrointestinal: reports: nausea, abdominal pain Genitourinary: denies: dysuria, frequency, incontinence, hematuria, retention, other Musculoskeletal: denies: neck pain, shoulder pain, arm pain, back pain, hand pain, leg pain, foot pain, other - Medication Medications: Active Medications Generic Name Dose Route Start Last Admin Trade Name Freq PRN Reason Stop Dose Admin Hydrocodone Bitart/Acetaminophen 1 tab 09/16/20 07:38 09/16/20 20:08 Hydrocodone/Acetaminophen 10/325 Mg Tablet PO 1 tab Q4H PRN Administration Mild-Moderate Pain (1-5) Hydrocodone Bitart/Acetaminophen 2 tab 09/16/20 07:38 09/17/20 08:28 Hydrocodone/Acetaminophen 10/325 Mg Tablet PO 2 tab Q4H PRN Administration Moderate to Severe Pain (6-10) Apixaban 5 mg 09/15/20 09:00 09/17/20 08:27 Apixaban 5 Mg Tab PO 5 mg BID EDMAR Administration Carvedilol 12.5 mg 09/14/20 21:00 09/17/20 08:27 Carvedilol 6.25 Mg Tab PO 12.5 mg BID EDMAR Administration Diphenhydramine HCl 25 mg 09/13/20 12:00 09/15/20 17:33 Diphenhydramine 50 Mg/Ml Vial IM/IV 25 mg Q3H PRN Administration Itching Diphenhydramine HCl 25 mg 09/13/20 12:00 09/17/20 04:28 Diphenhydramine 25 Mg Cap PO 25 mg Q3H PRN Administration Itching Famotidine 20 mg 09/12/20 21:00 09/17/20 08:27 Famotidine 20 Mg Tab PO 20 mg Q12HR EDMAR Administration Famotidine 20 mg 09/12/20 21:00 09/17/20 08:28 Famotidine/Pf 20 Mg/2ml Vial SLOW IVP Not Given Q12HR EDMAR Ferrous Sulfate 325 mg 09/14/20 17:00 09/17/20 08:27 Ferrous Sulfate 325 Mg Tab PO 325 mg BID-WM EDMAR Administration Sodium Chloride 1,000 mls @ 50 mls/hr 09/16/20 07:39 09/16/20 21:25 Normal Saline 0.9% IV 1,000 mls .Q20H EDMAR Administration Insulin Human Lispro 0 units 09/12/20 14:50 09/13/20 18:44 Humalog 300 Units/3 Ml Vial SC 2 unit .MILD SLIDING SCALE PRN Administration Mild Correctional Scale Multivitamins 1 tab 09/15/20 09:00 09/17/20 08:28 Multivit, Therapeutic 1 Tab PO 1 tab DAILY EDMAR Administration Ondansetron HCl 4 mg 09/13/20 12:00 09/16/20 05:22 Ondansetron Pf 4 Mg/2 Ml Vial IVP 4 mg Q6H PRN Administration Nausea/Vomiting Rosuvastatin Calcium 80 mg 09/15/20 21:00 09/16/20 20:09 Rosuvastatin 20 Mg Tab PO 80 mg HS EDMAR Administration Zolpidem Tartrate 5 mg 09/13/20 12:00 09/17/20 02:29 Zolpidem Tartrate 5 Mg Tab PO 5 mg HSPRN PRN Administration Insomnia - Exam Heart: negative: RRR, no murmur, no gallops, no rubs, normal peripheral pulses, irregular, diminshed peripheral pulses, murmur present, II/IV, III/IV Respiratory: negative: CTAB, no wheezes, no rales, no ronchi, normal chest expansion, no tachypnea, normal percussion, rales, rhonchi, tachypneic, wheezes Gastrointestinal: soft, normal bowel sounds, tender to palpation Gastrointestinal - other findings: mid abdomen incision intact Hosp A/P (1) Abdominal pain Code(s): R10.9 - UNSPECIFIED ABDOMINAL PAIN Status: Acute (2) Small bowel obstruction Code(s): K56.609 - UNSP INTESTNL OBST, UNSP TO PARTIAL VERSUS COMPLETE OBST Status: Acute (3) A-fib Code(s): I48.91 - UNSPECIFIED ATRIAL FIBRILLATION Status: Acute (4) Postoperative haemorrhage Code(s): [id number] - Status: Acute (5) Postoperative haemorrhage Code(s): [id number] - Status: Acute (6) Pulmonary embolism Code(s): I26.99 - OTHER PULMONARY EMBOLISM WITHOUT ACUTE COR PULMONALE Status: Acute (7) Diabetes Code(s): E11.9 - TYPE 2 DIABETES MELLITUS WITHOUT COMPLICATIONS Status: Acute (8) CAD (coronary artery disease) Code(s): I25.10 - ATHSCL HEART DISEASE OF [place] CORONARY ARTERY W/O ANG PCTRS Status: Acute - Plan Patient has had pulmonary embolism in 2002 according to her she states it was post surgery. She also has a history of atrial fibrillation underwent an ablation in 2014. She follows up with cardiology and electrophysiology. Laura santa currently is in normal sinus rhythm. She is on Eliquis 2.5 twice daily. Per records indicates that patient was on anticoagulation unclear if she was on Coumadin or Eliquis this was in May 2019. She underwent emergent surgery for incarcerated umbilical hernia. Postoperative her hospital course was complicated with massive bleeding. I will hold her Eliquis for now. She is currently in sinus rhythm. We will put on SCDs for now. She has been encouraged to ambulate. I believe Lovenox for DVT prophylaxis should be okay until surgeon is okay to resume anticoagulation. 09/13 pt underwent exploratory laparotomy and lysis of adhesions. 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 she is on scd for dvt ppx. 09/14 will hold toradol for now since her creatinine has worsen a bit. pt is on automotive technology instructor. will continue dvt ppx and scd. She has been encouraged to get up and move around. 09/15 pt's creatinine at baseline, eliquis restarted. will trend hh. pt tolerating clears encouraged to ambulate. 09/16 will continue eliquis for now, hh stable. pt encouraged to ambulate. 09/17 will continue to trend hh. pt still gets nauseated when she eats. Had one large diarrhea yest. will ambulate the pt.
[2020-09-17] MEDS: Ondansetron PF 4 MG/2 ML Vial IVP PRN (18:02)
[2020-09-17] MEDS: Rosuvastatin 20 MG TAB PO SCH (20:35)
[2020-09-17] MEDS: Sodium Chloride 0.9% 1,000 ML IV SCH (20:48)
[2020-09-18] MEDS: diphenhydrAMINE 25 MG CAP PO PRN ×2 (03:13→14:42)
[2020-09-18] MEDS ORDERED: Calcium Carbonate 500 MG ChewTAB PO SCH (03:30)
[2020-09-18] MEDS: Famotidine 20 MG TAB PO SCH ×2 (08:43→21:02)
[2020-09-18] MEDS: Apixaban 5 MG TAB PO SCH ×2 (08:43→21:03)
[2020-09-18] MEDS: Carvedilol 6.25 MG TAB PO SCH ×2 (08:43→21:03)
[2020-09-18] MEDS: Multivit, Therapeutic 1 TAB PO SCH (08:43)
[2020-09-18] MEDS: Famotidine/PF 20 mg/2ml Vial SLOW IVP SCH ×2 (08:46→20:57)
[2020-09-18] MEDS: Ferrous Sulfate 325 MG TAB PO SCH ×2 (08:46→17:22)
[2020-09-18] MEDS: HYDROcodone/Acetaminophen 10/325 mg Tablet PO PRN ×2 (08:50→14:43)
[2020-09-18] MEDS: Ondansetron PF 4 MG/2 ML Vial IVP PRN (08:50)
--- NOTE | 2020-09-18 09:42 | PRG ---
DATE OF SERVICE: 09/18/2020 SUBJECTIVE: The patient reports she is having a lot of itching around her incision. She complains of gastroesophageal reflux. She complains of nausea. She states that she has not vomited, but she is not passing anything on her bottom either. OBJECTIVE: VITAL SIGNS: On examination, her temperature is 97.6, pulse 54, and blood pressure 128/70. GENERAL: She is awake, alert, does not appear to be in distress. ABDOMEN: Her abdomen is nondistended. The wound looks good. There is no evidence of infection. There is some mild ecchymosis inferiorly. LABORATORY DATA: Her white count on lab is fine. Electrolytes were fine. Blood glucose is 94. ASSESSMENT: Ileus. PLAN: Check a KUB. Protonix. Job ID: [id number]
[2020-09-18] MEDS: HumaLOG 300 UNITS/3 ML VIAL SC PRN (12:04)
--- NOTE | 2020-09-18 14:08 | RAD ---
XR Abdomen 1 View/KUB History: Nausea Comparison: Radiograph September 12, 2020 Findings: Multiple midline surgical angelina. No enteric tube is appreciated. Evaluation for free air is limited without an upright exam. No dilated loops of large or small bowel. Impression: Postoperative low-grade ileus.
--- NOTE | 2020-09-18 14:34 | PDOC.HOSPP ---
- Subjective Encounter Date: 09/18/20 Encounter Time: 10:30 Subjective: pt up in bed still has nausea and has not passed gas - Objective Vital Signs & Weight: Vital Signs (12 hours) Temp Pulse Resp BP BP BP Pulse Ox 09/18/20 08:45 68 09/18/20 08:43 128/70 09/18/20 08:00 99 09/18/20 07:48 97.6 F 54 L 18 128/70 99 09/18/20 04:00 99.2 F 53 L 20 132/71 96 Weight Weight 217 lb 13.067 oz I&O: 09/17/20 09/18/20 09/19/20 06:59 06:59 06:59 Intake Total 1081 Balance 1081 Result Diagrams: 09/17/20 09:00 09/17/20 09:00 Additional Labs: Accuchecks 09/18/20 09/18/20 09/17/20 11:42 04:37 20:45 POC Glucose 207 H 94 129 H 09/17/20 09/15/20 09/15/20 16:24 19:30 16:05 POC Glucose 183 H 150 H 101 H 09/15/20 12:22 POC Glucose 90 Hospitalist ROS - Review of Systems Cardiovascular: denies: chest pain, palpitations, orthopnea, paroxysmal noc. dyspnea, edema, light headedness, other Gastrointestinal: reports: nausea, abdominal pain Genitourinary: denies: dysuria, frequency, incontinence, hematuria, retention, other Musculoskeletal: denies: neck pain, shoulder pain, arm pain, back pain, hand pain, leg pain, foot pain, other - Medication Medications: Active Medications Generic Name Dose Route Start Last Admin Trade Name Freq PRN Reason Stop Dose Admin Hydrocodone Bitart/Acetaminophen 1 tab 09/16/20 07:38 09/16/20 20:08 Hydrocodone/Acetaminophen 10/325 Mg Tablet PO 1 tab Q4H PRN Administration Mild-Moderate Pain (1-5) Hydrocodone Bitart/Acetaminophen 2 tab 09/16/20 07:38 09/18/20 08:50 Hydrocodone/Acetaminophen 10/325 Mg Tablet PO 2 tab Q4H PRN Administration Moderate to Severe Pain (6-10) Apixaban 5 mg 09/15/20 09:00 09/18/20 08:43 Apixaban 5 Mg Tab PO 5 mg BID EDMAR Administration Carvedilol 12.5 mg 09/14/20 21:00 09/18/20 08:43 Carvedilol 6.25 Mg Tab PO 12.5 mg BID EDMAR Administration Diphenhydramine HCl 25 mg 09/13/20 12:00 09/15/20 17:33 Diphenhydramine 50 Mg/Ml Vial IM/IV 25 mg Q3H PRN Administration Itching Diphenhydramine HCl 25 mg 09/13/20 12:00 09/18/20 03:13 Diphenhydramine 25 Mg Cap PO 25 mg Q3H PRN Administration Itching Famotidine 20 mg 09/12/20 21:00 09/18/20 08:43 Famotidine 20 Mg Tab PO 20 mg Q12HR EDMAR Administration Famotidine 20 mg 09/12/20 21:00 09/18/20 08:46 Famotidine/Pf 20 Mg/2ml Vial SLOW IVP Not Given Q12HR EDMAR Ferrous Sulfate 325 mg 09/14/20 17:00 09/18/20 08:46 Ferrous Sulfate 325 Mg Tab PO 325 mg BID-WM EDMAR Administration Sodium Chloride 1,000 mls @ 50 mls/hr 09/16/20 07:39 09/17/20 20:48 Normal Saline 0.9% IV 1,000 mls .Q20H EDMAR Administration Insulin Human Lispro 0 units 09/12/20 14:50 09/18/20 12:04 Humalog 300 Units/3 Ml Vial SC 3 unit .MILD SLIDING SCALE PRN Administration Mild Correctional Scale Multivitamins 1 tab 09/15/20 09:00 09/18/20 08:43 Multivit, Therapeutic 1 Tab PO 1 tab DAILY EDMAR Administration Ondansetron HCl 4 mg 09/13/20 12:00 09/18/20 08:50 Ondansetron Pf 4 Mg/2 Ml Vial IVP 4 mg Q6H PRN Administration Nausea/Vomiting Rosuvastatin Calcium 80 mg 09/15/20 21:00 09/17/20 20:35 Rosuvastatin 20 Mg Tab PO 80 mg HS EDMAR Administration Zolpidem Tartrate 5 mg 09/13/20 12:00 09/17/20 02:29 Zolpidem Tartrate 5 Mg Tab PO 5 mg HSPRN PRN Administration Insomnia - Exam Neck: negative: supple, symmetric, no JVD, no thyromegaly, no lymphadenopathy, no carotid bruit, JVD Heart: negative: RRR, no murmur, no gallops, no rubs, normal peripheral pulses, irregular, diminshed peripheral pulses, murmur present, II/IV, III/IV Respiratory: negative: CTAB, no wheezes, no rales, no ronchi, normal chest expansion, no tachypnea, normal percussion, rales, rhonchi, tachypneic, wheezes Gastrointestinal: soft Gastrointestinal - other findings: hypoactive bowel sounds, mild discharge. Hosp A/P (1) Abdominal pain Code(s): R10.9 - UNSPECIFIED ABDOMINAL PAIN Status: Acute (2) Small bowel obstruction Code(s): K56.609 - UNSP INTESTNL OBST, UNSP TO PARTIAL VERSUS COMPLETE OBST Status: Acute (3) A-fib Code(s): I48.91 - UNSPECIFIED ATRIAL FIBRILLATION Status: Acute (4) Postoperative haemorrhage Code(s): [id number] - Status: Acute (5) Postoperative haemorrhage Code(s): [id number] - Status: Acute (6) Pulmonary embolism Code(s): I26.99 - OTHER PULMONARY EMBOLISM WITHOUT ACUTE COR PULMONALE Status: Acute (7) Diabetes Code(s): E11.9 - TYPE 2 DIABETES MELLITUS WITHOUT COMPLICATIONS Status: Acute (8) CAD (coronary artery disease) Code(s): I25.10 - ATHSCL HEART DISEASE OF [place] CORONARY ARTERY W/O ANG PCTRS Status: Acute - Plan Patient has had pulmonary embolism in 2002 according to her she states it was post surgery. She also has a history of atrial fibrillation underwent an ablation in 2014. She follows up with cardiology and electrophysiology. Patient currently is in normal sinus rhythm. She is on Eliquis 2.5 twice daily. Per records indicates that patient was on anticoagulation unclear if she was on Coumadin or Eliquis this was in May 2019. She underwent emergent surgery for incarcerated umbilical hernia. Postoperative her hospital course was complicated with massive bleeding. I will hold her Eliquis for now. She is cur rently in sinus rhythm. We will put on SCDs for now. She has been encouraged to ambulate. I believe Lovenox for DVT prophylaxis should be okay until surgeon is okay to resume anticoagulation. 09/13 pt underwent exploratory laparotomy and lysis of adhesions. she has security dispatcher pump. she is on scd for dvt ppx. 09/14 will hold toradol for now since her creatinine has worsen a bit. pt is on security dispatcher. will continue dvt ppx and scd. She has been encouraged to get up and move around. 09/15 pt's creatinine at baseline, eliquis restarted. will trend hh. pt tolerating clears encouraged to ambulate. 09/16 will continue eliquis for now, hh stable. pt encouraged to ambulate. 09/17 will continue to trend hh. pt still gets nauseated when she eats. Had one large diarrhea yest. will ambulate the pt. 09/18 will trend hh for now. KUB indicated ileus. pt encouraged to ambulate. Medically she is stable.
[2020-09-18] MEDS: Rosuvastatin 20 MG TAB PO SCH (21:02)
[2020-09-18] MEDS: Zolpidem Tartrate 5 MG TAB PO PRN (21:03)
[2020-09-18] MEDS: Sodium Chloride 0.9% 1,000 ML IV SCH (21:04)
[2020-09-18] MEDS ORDERED: Lidocaine 2% Viscous Solution 10 ML, Aluminum & Magnesium Hydroxide 30 ML SSW SCH (21:30)
[2020-09-19 06:31] LABS: ALT (SGPT) 8 U/L (8-55); AST (SGOT) 18 U/L (5-34); Albumin 2.7 g/dL (3.4-4.8); Alkaline Phosphatase 76 U/L (40-110); Anion Gap 10 mmol/L (10-20); BUN (Urea Nitrogen) 6 mg/dL (9.8-20.1); Bilirubin, Total 0.4 mg/dL (0.2-1.2); Calc. Creatinine Clearance 81 mL/min (70-130); Calcium 9.2 mg/dL (7.8-10.44); Carbon Dioxide 20 mmol/L (23-31); Chloride 115 mmol/L (98-107); Estimated GFR-MDRD 59; Glucose 129 mg/dL (80-115); Magnesium 1.7 mg/dL (1.6-2.6); Phosphorus 2.7 mg/dL (2.3-4.7); Potassium 4.2 mmol/L (3.5-5.1); Protein, Total 5.7 g/dL (6.0-8.3); Sodium 141 mmol/L (136-145)
[2020-09-19] MEDS: Famotidine/PF 20 mg/2ml Vial SLOW IVP SCH ×2 (08:31→20:45)
[2020-09-19] MEDS: Carvedilol 6.25 MG TAB PO SCH ×2 (08:31→20:45)
[2020-09-19] MEDS: Ondansetron PF 4 MG/2 ML Vial IVP PRN (08:31)
[2020-09-19] MEDS: Apixaban 5 MG TAB PO SCH ×2 (08:31→20:45)
[2020-09-19] MEDS: Ferrous Sulfate 325 MG TAB PO SCH ×2 (08:31→16:36)
[2020-09-19] MEDS: Famotidine 20 MG TAB PO SCH (08:32)
[2020-09-19] MEDS: Multivit, Therapeutic 1 TAB PO SCH (08:32)
[2020-09-19] MEDS ORDERED: Pantoprazole 40 MG VIAL IVP SCH (09:00)
[2020-09-19] MEDS: HYDROcodone/Acetaminophen 10/325 mg Tablet PO PRN ×3 (10:42→20:43)
[2020-09-19] MEDS: diphenhydrAMINE 25 MG CAP PO PRN ×3 (10:43→20:44)
[2020-09-19] MEDS ORDERED: Bisacodyl 10 MG SUPP PR PRN (11:38)
--- NOTE | 2020-09-19 11:54 | PRG ---
DATE OF SERVICE: 09/19/2020 SUBJECTIVE: The patient states still having some pain, it is a little better. She still has some nausea. No vomiting. She reports reflux. She was given the first dose of Protonix this morning. She has not passed anything out her bottom she says. KUB did not show evidence of obstruction. On exam, her abdomen is soft, nondistended. The incision looks good. She says she has had some drainage from the inferior portion when I looked at it, I could not really see any drainage, so I put a dressing on that area to see if we can document any drainage. ASSESSMENT: Ileus. PLAN: Try Dulcolax suppository. Job ID: [id number]
--- NOTE | 2020-09-19 13:40 | PDOC.HOSPP ---
- Subjective Encounter Date: 09/19/20 Encounter Time: 11:15 Subjective: pt up in chair still is nauseated and no flatus. - Objective Vital Signs & Weight: Vital Signs (12 hours) Temp Pulse Resp BP BP BP Pulse Ox 09/19/20 08:31 129/66 09/19/20 08:30 64 09/19/20 08:00 98 09/19/20 07:33 97.5 F L 56 L 18 129/66 98 09/19/20 04:00 97.0 F L 56 L 20 125/75 98 Weight Weight 217 lb 13.067 oz Result Diagrams: 09/17/20 09:00 09/19/20 05:45 Additional Labs: Accuchecks 09/19/20 09/18/20 09/18/20 04:52 19:24 16:45 POC Glucose 121 H 170 H 123 H Hospitalist ROS - Review of Systems Cardiovascular: denies: chest pain, palpitations, orthopnea, paroxysmal noc. dyspnea, edema, light headedness, other Gastrointestinal: reports: nausea, abdominal pain Genitourinary: denies: dysuria, frequency, incontinence, hematuria, retention, other Musculoskeletal: denies: neck pain, shoulder pain, arm pain, back pain, hand pain, leg pain, foot pain, other - Medication Medications: Active Medications Generic Name Dose Route Start Last Admin Trade Name Freq PRN Reason Stop Dose Admin Hydrocodone Bitart/Acetaminophen 1 tab 09/16/20 07:38 09/16/20 20:08 Hydrocodone/Acetaminophen 10/325 Mg Tablet PO 1 tab Q4H PRN Administration Mild-Moderate Pain (1-5) Hydrocodone Bitart/Acetaminophen 2 tab 09/16/20 07:38 09/19/20 10:42 Hydrocodone/Acetaminophen 10/325 Mg Tablet PO 2 tab Q4H PRN Administration Moderate to Severe Pain (6-10) Apixaban 5 mg 09/15/20 09:00 09/19/20 08:31 Apixaban 5 Mg Tab PO 5 mg BID EDMAR Administration Bisacodyl 10 mg 09/19/20 11:38 09/19/20 12:44 Bisacodyl 10 Mg Supp PA 10 mg Q8H PRN Administration Constipation Carvedilol 12.5 mg 09/14/20 21:00 09/19/20 08:31 Carvedilol 6.25 Mg Tab PO 12.5 mg BID EDMAR Administration Diphenhydramine HCl 25 mg 09/13/20 12:00 09/15/20 17:33 Diphenhydramine 50 Mg/Ml Vial IM/IV 25 mg Q3H PRN Administration Itching Diphenhydramine HCl 25 mg 09/13/20 12:00 09/19/20 10:43 Diphenhydramine 25 Mg Cap PO 25 mg Q3H PRN Administration Itching Famotidine 20 mg 09/12/20 21:00 09/19/20 08:31 Famotidine/Pf 20 Mg/2ml Vial SLOW IVP 20 mg Q12HR EDMAR Administration Ferrous Sulfate 325 mg 09/14/20 17:00 09/19/20 08:31 Ferrous Sulfate 325 Mg Tab PO 325 mg BID-WM EDMAR Administration Sodium Chloride 1,000 mls @ 50 mls/hr 09/16/20 07:39 09/18/20 21:04 Normal Saline 0.9% IV 1,000 mls .Q20H EDMAR Administration Insulin Human Lispro 0 units 09/12/20 14:50 09/18/20 12:04 Humalog 300 Units/3 Ml Vial SC 3 unit .MILD SLIDING SCALE PRN Administration Mild Correctional Scale Multivitamins 1 tab 09/15/20 09:00 09/19/20 08:32 Multivit, Therapeutic 1 Tab PO 1 tab DAILY EDMAR Administration Ondansetron HCl 4 mg 09/13/20 12:00 09/19/20 08:31 Ondansetron Pf 4 Mg/2 Ml Vial IVP 4 mg Q6H PRN Administration Nausea/Vomiting Rosuvastatin Calcium 80 mg 09/15/20 21:00 09/18/20 21:02 Rosuvastatin 20 Mg Tab PO 80 mg HS EDMAR Administration Zolpidem Tartrate 5 mg 09/13/20 12:00 09/18/20 21:03 Zolpidem Tartrate 5 Mg Tab PO 5 mg HSPRN PRN Administration Insomnia - Exam Neck: negative: supple, symmetric, no JVD, no thyromegaly, no lymphadenopathy, no carotid bruit, JVD Heart: negative: RRR, no murmur, no gallops, no rubs, normal peripheral pulses, irregular, diminshed peripheral pulses, murmur present, II/IV, III/IV Respiratory: negative: CTAB, no wheezes, no rales, no ronchi, normal chest expansion, no tachypnea, normal percussion, rales, rhonchi, tachypneic, wheezes Gastrointestinal: soft, normal bowel sounds Gastrointestinal - other findings: mid abd incision Hosp A/P (1) Abdominal pain Code(s): R10.9 - UNSPECIFIED ABDOMINAL PAIN Status: Acute (2) Small bowel obstruction Code(s): K56.609 - UNSP INTESTNL OBST, UNSP TO PARTIAL VERSUS COMPLETE OBST Status: Acute (3) A-fib Code(s): I48.91 - UNSPECIFIED ATRIAL FIBRILLATION Status: Acute (4) Postoperative haemorrhage Code(s): [id number] - Status: Acute (5) Postoperative haemorrhage Code(s): [id number] - Status: Acute (6) Pulmonary embolism Code(s): I26.99 - OTHER PULMONARY EMBOLISM WITHOUT ACUTE COR PULMONALE Status: Acute (7) Diabetes Code(s): E11.9 - TYPE 2 DIABETES MELLITUS WITHOUT COMPLICATIONS Status: Acute (8) CAD (coronary artery disease) Code(s): I25.10 - ATHSCL HEART DISEASE OF [place] CORONARY ARTERY W/O ANG PCTRS Status: Acute - Plan Patient has had pulmonary embolism in 2002 according to her she states it was post surgery. She also has a history of atrial fibrillation underwent an ablation in 2014. She follows up with cardiology and electrophysiology. Patient currently is in normal sinus rhythm. She is on Eliquis 2.5 twice daily. Per records indicates that patient was on anticoagulation unclear if she was on Coumadin or Eliquis this was in May 2019. She underwent emergent surgery for incarcerated umbilical hernia. Postoperative her hospital course was complicated with massive bleeding. I will hold her Eliquis for now. She is currently in sinus rhythm. We will put on SCDs for now. She has been encouraged to ambulate. I believe Lovenox for DVT prophylaxis should be okay until surgeon is okay to resume anticoagulation. 09/13 pt underwent exploratory laparotomy and lysis of adhesions. she has clinical lab scientist pump. she is on scd for dvt ppx. 09/14 will hold toradol for now since her creatinine has worsen a bit. pt is on clinical lab scientist. will continue dvt ppx and scd. She has been encouraged to get up and move around. 11/13 pt's creatinine at baseline, eliquis restarted. will trend hh. pt tolerating clears encouraged to ambulate. 09/16 will continue eliquis for now, hh stable. pt encouraged to ambulate. 09/17 will continue to trend hh. pt still gets nauseated when she eats. Had one large diarrhea yest. will ambulate the pt. 09/18 will trend hh for now. KUB indicated ileus. pt encouraged to ambulate. Medically she is stable. 09/19 will check cbc in am, will make protonix to bid and stop pepcid and add gi cocktail prn.
[2020-09-19] MEDS: Sodium Chloride 0.9% 1,000 ML IV SCH (16:35)
[2020-09-19] MEDS: Zolpidem Tartrate 5 MG TAB PO PRN (20:49)
[2020-09-19] MEDS: Pantoprazole 40 MG VIAL IVP SCH (21:12)
[2020-09-19] MEDS: Rosuvastatin 20 MG TAB PO SCH (21:12)
[2020-09-20 06:41] LABS: #Eosinphils 0.2 thou/uL (0.0-0.7); #Lymphocytes 1.7 thou/uL (1.20-3.40); #Monocytes 0.4 thou/uL (0.11-0.59); #Neutrophils 1.8 thou/uL (1.40-6.50); %Eosinophils 4.7 % (0.0-10.0); %Lymphocytes 41.6 % (21.0-51.0); %Neutrophils 42.7 % (42.0-75.0); Hemoglobin 8.8 g/dL (12.0-16.0); Mean Corpuscular HGB CONC 31.4 g/dL (32.0-36.0); Mean Corpuscular Volume 76.4 fL (78.0-98.0); Mean Platelet Volume 8.6 fL (7.4-10.4); Platelet Count 161 thou/uL (130-400); RBC Distribution Width 14.4 % (11.5-14.5); Red Blood Cell (RBC) Count 3.65 mill/uL (4.20-5.40); White Blood Cell (WBC) Count 4.1 thou/uL (4.8-10.8)
[2020-09-20 07:03] LABS: Anion Gap 11 mmol/L (10-20); BUN (Urea Nitrogen) 6 mg/dL (9.8-20.1); Calc. Creatinine Clearance 79 mL/min (70-130); Calcium 9.6 mg/dL (7.8-10.44); Carbon Dioxide 20 mmol/L (23-31); Chloride 114 mmol/L (98-107); Estimated GFR-MDRD 57; Glucose 137 mg/dL (80-115); Magnesium 1.6 mg/dL (1.6-2.6); Potassium 4.2 mmol/L (3.5-5.1); Sodium 141 mmol/L (136-145)
[2020-09-20] MEDS: Apixaban 5 MG TAB PO SCH ×2 (07:56→20:27)
[2020-09-20] MEDS: Ferrous Sulfate 325 MG TAB PO SCH ×2 (07:56→17:22)
[2020-09-20] MEDS: Multivit, Therapeutic 1 TAB PO SCH (07:56)
[2020-09-20] MEDS: Carvedilol 6.25 MG TAB PO SCH ×2 (07:56→20:26)
[2020-09-20] MEDS: Pantoprazole 40 MG VIAL IVP SCH ×2 (07:57→20:27)
[2020-09-20] MEDS: Famotidine/PF 20 mg/2ml Vial SLOW IVP SCH ×2 (07:57→20:27)
[2020-09-20] MEDS ORDERED: Iopamidol-370 76% 500 ML 1 ML ONE (08:48)
[2020-09-20 09:35] LABS: Hemoglobin 8.9 g/dL (12.0-16.0); Platelet Count 157 thou/uL (130-400)
--- NOTE | 2020-09-20 12:02 | PRG ---
DATE OF SERVICE: 09/20/2020 SUBJECTIVE: The patient states she is not feeling any better. She is still having nausea. She had a little bit of gas and bowel movement with the suppository. She is tolerating clear liquids and says she wants to try full liquids, but she says she is not getting any better. OBJECTIVE: GENERAL: She is morbidly obese. ABDOMEN: The wound looks okay. The drainage has stopped. I do not see any evidence of infection. Because of her size, I cannot tell if she has any significant distention. I do not feel any recurrent hernia. ASSESSMENT: Ileus versus partial obstruction. PLAN: Repeat CT scan of abdomen and pelvis with a small amount of p.o. contrast. If that is normal, then we can be more aggressive in cleaning her out and get her out of here. Job ID: [id number]
--- NOTE | 2020-09-20 12:24 | CT ---
CT ABDOMEN AND PELVIS WITH IV CONTRAST: Date: 09/20/2020 Low dose IV contrast given, along with a small amount of oral contrast. INDICATION: Ileus. Question small bowel obstruction. Recent hernia repair with small bowel obstruction. Comparison made to previous exam of 09/12/2020 which showed small bowel obstruction secondary to an a nterior ventral hernia. FINDINGS: Lung bases clear. Liver, spleen, and pancreas unremarkable. Postoperative changes involving the stomach again noted and were previously described. Kidneys unremarkable. Small bowel loops are normal caliber today. Colon unremarkable. Postoperative changes are now seen involving the anterior abdominal wall at the site of the previousl y noted ventral hernia. There is a fluid-dense collection within the subcutaneous tissues at the oper ative site just beneath the skin angelina which measures 5.0 cm width x 3.0 cm AP dimension in the axi al plane. This could represent hematoma or abscess collection. No significant free fluid in the abdomen or pelvis. No acute intra-abdominal process identified. IMPRESSION: Postoperative changes involving the anterior abdominal wall since the prior exam. An irregularly-shap ed fluid dense collection in the subcutaneous tissues at the incision site noted as described above. POS: [facility]
[2020-09-20] MEDS: HYDROcodone/Acetaminophen 10/325 mg Tablet PO PRN ×2 (12:55→19:01)
[2020-09-20] MEDS: Sodium Chloride 0.9% 1,000 ML IV SCH (12:56)
[2020-09-20] MEDS: diphenhydrAMINE 25 MG CAP PO PRN ×2 (12:58→19:01)
--- NOTE | 2020-09-20 14:12 | PDOC.HOSPP ---
- Subjective Encounter Date: 09/20/20 Encounter Time: 11:15 Subjective: pt up in chair feels tired. - Objective Vital Signs & Weight: Vital Signs (12 hours) Temp Pulse Resp BP BP Pulse Ox 09/20/20 08:00 100 09/20/20 07:56 143/75 H 09/20/20 07:44 96.0 F L 52 L 18 111/55 L 100 Weight Weight 217 lb 13.067 oz I&O: 09/19/20 09/20/20 09/21/20 06:59 06:59 06:59 Intake Total 240 Balance 240 Result Diagrams: 09/20/20 09:00 09/20/20 09:00 Additional Labs: Accuchecks 09/20/20 09/20/20 09/19/20 12:02 04:14 12:27 POC Glucose 142 H 130 H 145 H Hospitalist ROS - Review of Systems Cardiovascular: denies: chest pain, palpitations, orthopnea, paroxysmal noc. dyspnea, edema, light headedness, other Gastrointestinal: denies: nausea, vomiting, abdominal pain, diarrhea, constipation, melena, hematochezia, other - Medication Medications: Active Medications Generic Name Dose Route Start Last Admin Trade Name Freq PRN Reason Stop Dose Admin Hydrocodone Bitart/Acetaminophen 1 tab 09/16/20 07:38 09/16/20 20:08 Hydrocodone/Acetaminophen 10/325 Mg Tablet PO 1 tab Q4H PRN Administration Mild-Moderate Pain (1-5) Hydrocodone Bitart/Acetaminophen 2 tab 09/16/20 07:38 09/20/20 12:55 Hydrocodone/Acetaminophen 10/325 Mg Tablet PO 2 tab Q4H PRN Administration Moderate to Severe Pain (6-10) Apixaban 5 mg 09/15/20 09:00 09/20/20 07:56 Apixaban 5 Mg Tab PO 5 mg BID EDMAR Administration Bisacodyl 10 mg 09/19/20 11:38 09/19/20 12:44 Bisacodyl 10 Mg Supp NE 10 mg Q8H PRN Administration Constipation Carvedilol 12.5 mg 09/14/20 21:00 09/20/20 07:56 Carvedilol 6.25 Mg Tab PO 12.5 mg BID EDMAR Administration Diphenhydramine HCl 25 mg 09/13/20 12:00 09/15/20 17:33 Diphenhydramine 50 Mg/Ml Vial IM/IV 25 mg Q3H PRN Administration Itching Diphenhydramine HCl 25 mg 09/13/20 12:00 09/20/20 12:58 Diphenhydramine 25 Mg Cap PO 25 mg Q3H PRN Administration Itching Famotidine 20 mg 09/12/20 21:00 09/20/20 07:57 Famotidine/Pf 20 Mg/2ml Vial SLOW IVP 20 mg Q12HR EDMAR Administration Ferrous Sulfate 325 mg 09/14/20 17:00 09/20/20 07:56 Ferrous Sulfate 325 Mg Tab PO 325 mg BID-WM EDMAR Administration Sodium Chloride 1,000 mls @ 50 mls/hr 09/16/20 07:39 09/20/20 12:56 Normal Saline 0.9% IV 1,000 mls .Q20H EDMAR Administration Insulin Human Lispro 0 units 09/12/20 14:50 09/18/20 12:04 Humalog 300 Units/3 Ml Vial SC 3 unit .MILD SLIDING SCALE PRN Administration Mild Correctional Scale Multivitamins 1 tab 09/15/20 09:00 09/20/20 07:56 Multivit, Therapeutic 1 Tab PO 1 tab DAILY EDMAR Administration Ondansetron HCl 4 mg 09/13/20 12:00 09/19/20 08:31 Ondansetron Pf 4 Mg/2 Ml Vial IVP 4 mg Q6H PRN Administration Nausea/Vomiting Pantoprazole Sodium 40 mg 09/19/20 21:00 09/20/20 07:57 Pantoprazole 40 Mg Vial IVP 40 mg BID EDMAR Administration Rosuvastatin Calcium 80 mg 09/15/20 21:00 09/19/20 21:12 Rosuvastatin 20 Mg Tab PO 80 mg HS EDMAR Administration Sodium Chloride 10 ml 09/12/20 10:50 09/20/20 07:57 Flush - Normal Saline 10 Ml Syringe IVF 10 ml PRN PRN Administration Saline Flush Zolpidem Tartrate 5 mg 09/13/20 12:00 09/19/20 20:49 Zolpidem Tartrate 5 Mg Tab PO 5 mg HSPRN PRN Administration Insomnia - Exam Neck: negative: supple, symmetric, no JVD, no thyromegaly, no lymphadenopathy, no carotid bruit, JVD Heart: negative: RRR, no murmur, no gallops, no rubs, normal peripheral pulses, irregular, diminshed peripheral pulses, murmur present, II/IV, III/IV Respiratory: negative: CTAB, no wheezes, no rales, no ronchi, normal chest expansion, no tachypnea, normal percussion, rales, rhonchi, tachypneic, wheezes Hosp A/P (1) Abdominal pain Code(s): R10.9 - UNSPECIFIED ABDOMINAL PAIN Status: Acute (2) Small bowel obstruction Code(s): K56.609 - UNSP INTESTNL OBST, UNSP TO PARTIAL VERSUS COMPLETE OBST Status: Acute (3) A-fib Code(s): I48.91 - UNSPECIFIED ATRIAL FIBRILLATION Status: Acute (4) Postoperative haemorrhage Code(s): [id number] - Status: Acute (5) Postoperative haemorrhage Code(s): [id number] - Status: Acute (6) Pulmonary embolism Code(s): I26.99 - OTHER PULMONARY EMBOLISM WITHOUT ACUTE COR PULMONALE Status: Acute (7) Diabetes Code(s): E11.9 - TYPE 2 DIABETES MELLITUS WITHOUT COMPLICATIONS Status: Acute (8) CAD (coronary artery disease) Code(s): I25.10 - ATHSCL HEART DISEASE OF [place] CORONARY ARTERY W/O ANG PCTRS Status: Acute - Plan Patient has had pulmonary embolism in 2002 according to her she states it was post surgery. She also has a history of atrial fibrillation underwent an ablation in 2014. She follows up with cardiology and electrophysiology. Patient currently is in normal sinus rhythm. She is on Eliquis 2.5 twice daily. Per records indicates that patient was on anticoagulation unclear if she was on Coumadin or Eliquis this was in May 2019. She underwent emergent surgery for incarcerated umbilical hernia. Postoperative her hospital course was complicated with massive bleeding. I will hold her Eliquis for now. She is currently in sinus rhythm. We will put on SCDs for now. She has been encouraged to ambulate. I believe Lovenox for DVT prophylaxis should be okay until surgeon is okay to resume anticoagulation. 09/13 pt underwent exploratory laparotomy and lysis of adhesions. she has music therapy specialist pump. she is on scd for dvt ppx. 09/14 will hold toradol for now since her creatinine has worsen a bit. pt is on music therapy specialist. will continue dvt ppx and scd. She has been encouraged to get up and move around. 09/15 pt's creatinine at baseline, eliquis restarted. will trend hh. pt t olerating clears encouraged to ambulate. 09/16 will continue eliquis for now, hh stable. pt encouraged to ambulate. 09/17 will continue to trend hh. pt still gets nauseated when she eats. Had one large diarrhea yest. will ambulate the pt. 09/18 will trend hh for now. KUB indicated ileus. pt encouraged to ambulate. Medically she is stable. 09/19 will check cbc in am, will make protonix to bid and stop pepcid and add gi cocktail prn. 09/[address] abd/pel, will continue protonix. pt states that she had flatus. However she still gets nauseated.
[2020-09-20] MEDS: Lidocaine 2% Viscous Solution 10 ML, Aluminum & Magnesium Hydroxide 30 ML SSW PRN (14:38)
[2020-09-20] MEDS: Rosuvastatin 20 MG TAB PO SCH (20:26)
[2020-09-20] MEDS: Zolpidem Tartrate 5 MG TAB PO PRN (20:27)
[2020-09-21] MEDS: Lidocaine 2% Viscous Solution 10 ML, Aluminum & Magnesium Hydroxide 30 ML SSW PRN ×2 (02:15→16:58)
[2020-09-21] MEDS: HYDROcodone/Acetaminophen 10/325 mg Tablet PO PRN ×3 (02:23→20:41)
[2020-09-21] MEDS: diphenhydrAMINE 25 MG CAP PO PRN ×4 (02:23→20:41)
[2020-09-21] MEDS: Ondansetron PF 4 MG/2 ML Vial IVP PRN (02:23)
[2020-09-21] MEDS: Sodium Chloride 0.9% 1,000 ML IV SCH (08:21)
[2020-09-21] MEDS: Pantoprazole 40 MG VIAL IVP SCH (08:22)
[2020-09-21] MEDS: Carvedilol 6.25 MG TAB PO SCH ×2 (08:23→20:38)
[2020-09-21] MEDS: Multivit, Therapeutic 1 TAB PO SCH (08:23)
[2020-09-21] MEDS: Apixaban 5 MG TAB PO SCH ×2 (08:23→20:37)
[2020-09-21] MEDS: Ferrous Sulfate 325 MG TAB PO SCH ×2 (08:23→17:12)
[2020-09-21] MEDS: Famotidine/PF 20 mg/2ml Vial SLOW IVP SCH ×2 (08:29→20:38)
--- NOTE | 2020-09-21 08:41 | PRG ---
DATE OF SERVICE: 09/21/2020 SUBJECTIVE: The patient complains of reflux, but is hungry for trying some soft food. She is passing gas. OBJECTIVE: VITAL SIGNS: Her temperature is 97.8, pulse 61, and blood pressure 130/73. GENERAL: She is awake and alert. ABDOMEN: Soft. The wound is open. ASSESSMENT: Seroma. PLAN: Wound VAC. We will advance diet. Job ID: [id number]
[2020-09-21 10:42] LABS: Anion Gap 10 mmol/L (10-20); BUN (Urea Nitrogen) 5 mg/dL (9.8-20.1); Calc. Creatinine Clearance 66 mL/min (70-130); Calcium 9.8 mg/dL (7.8-10.44); Carbon Dioxide 22 mmol/L (23-31); Chloride 115 mmol/L (98-107); Estimated GFR-MDRD 47; Glucose 153 mg/dL (80-115); Potassium 4.1 mmol/L (3.5-5.1); Sodium 143 mmol/L (136-145)
[2020-09-21 10:43] LABS: Troponin I 0.014 ng/mL (< 0.028)
[2020-09-21] MEDS: Sucralfate 1 GM TAB PO SCH ×3 (12:04→20:38)
[2020-09-21 14:54] LABS: Troponin I 0.019 ng/mL (< 0.028)
--- NOTE | 2020-09-21 15:05 | PDOC.HOSPP ---
- Subjective Encounter Date: 09/21/20 Encounter Time: 11:50 Subjective: pt up in chair no complains. - Objective Vital Signs & Weight: Vital Signs (12 hours) Temp Pulse Resp BP BP Pulse Ox 09/21/20 13:48 98.1 F 65 18 149/80 H 100 09/21/20 08:00 98 09/21/20 07:26 97.8 F 61 18 130/73 98 09/21/20 04:29 98.4 F 63 16 134/78 99 Weight Admit Weight 217 lb 12.8 oz Weight 217 lb 13.067 oz I&O: 09/20/20 09/21/20 09/22/20 06:59 06:59 06:59 Intake Total 240 240 Balance 240 240 Result Diagrams: 09/20/20 09:00 09/21/20 10:06 Additional Labs: Accuchecks 09/21/20 09/21/20 09/20/20 11:34 04:25 19:54 POC Glucose 133 H 161 H 150 H 09/20/20 09/19/20 09/19/20 17:02 19:52 16:10 POC Glucose 165 H 136 H 160 H Hospitalist ROS - Review of Systems Respiratory: denies: cough, dry, shortness of breath, hemoptysis, SOB with excertion, pleuritic pain, sputum, wheezing, other Cardiovascular: denies: chest pain, palpitations, orthopnea, paroxysmal noc. dyspnea, edema, light headedness, other Gastrointestinal: denies: nausea, vomiting, abdominal pain, diarrhea, const ipation, melena, hematochezia, other - Medication Medications: Active Medications Generic Name Dose Route Start Last Admin Trade Name Freq PRN Reason Stop Dose Admin Hydrocodone Bitart/Acetaminophen 1 tab 09/16/20 07:38 09/16/20 20:08 Hydrocodone/Acetaminophen 10/325 Mg Tablet PO 1 tab Q4H PRN Administration Mild-Moderate Pain (1-5) Hydrocodone Bitart/Acetaminophen 2 tab 09/16/20 07:38 09/21/20 12:06 Hydrocodone/Acetaminophen 10/325 Mg Tablet PO 2 tab Q4H PRN Administration Moderate to Severe Pain (6-10) Apixaban 5 mg 09/15/20 09:00 09/21/20 08:23 Apixaban 5 Mg Tab PO 5 mg BID EDMAR Administration Bisacodyl 10 mg 09/19/20 11:38 09/19/20 12:44 Bisacodyl 10 Mg Supp [place] 10 mg Q8H PRN Administration Constipation Carvedilol 12.5 mg 09/14/20 21:00 09/21/20 08:23 Carvedilol 6.25 Mg Tab PO 12.5 mg BID EDMAR Administration Lidocaine HCl 10 ml/ Al 0 ml 09/19/20 13:37 09/21/20 02:15 Hydroxide/Mg Hydroxide 30 ml SSW 40 dose BID PRN Administration Sore Throat Diphenhydramine HCl 25 mg 09/13/20 12:00 09/15/20 17:33 Diphenhydramine 50 Mg/Ml Vial IM/IV 25 mg Q3H PRN Administration Itching Diphenhydramine HCl 25 mg 09/13/20 12:00 09/21/20 12:11 Diphenhydramine 25 Mg Cap PO 25 mg Q3H PRN Administration Itching Famotidine 20 mg 09/12/20 21:00 09/21/20 08:29 Famotidine/Pf 20 Mg/2ml Vial SLOW IVP 20 mg Q12HR EDMAR Administration Ferrous Sulfate 325 mg 09/14/20 17:00 09/21/20 08:23 Ferrous Sulfate 325 Mg Tab PO 325 mg BID-WM EDMAR Administration Sodium Chloride 1,000 mls @ 50 mls/hr 09/16/20 07:39 09/21/20 08:21 Normal Saline 0.9% IV 1,000 mls .Q20H EDMAR Administration Insulin Human Lispro 0 units 09/12/20 14:50 09/18/20 12:04 Humalog 300 Units/3 Ml Vial SC 3 unit .MILD SLIDING SCALE PRN Administration Mild Correctional Scale Morphine Sulfate 4 mg 09/16/20 07:38 09/21/20 10:07 Morphine 4 Mg/Ml Vial SLOW IVP 4 mg Q4H PRN Administration Severe Pain (7-10) Multivitamins 1 tab 09/15/20 09:00 09/21/20 08:23 Multivit, Therapeutic 1 Tab PO 1 tab DAILY EDMAR Administration Ondansetron HCl 4 mg 09/13/20 12:00 09/21/20 02:23 Ondansetron Pf 4 Mg/2 Ml Vial IVP 4 mg Q6H PRN Administration Nausea/Vomiting Rosuvastatin Calcium 80 mg 09/15/20 21:00 09/20/20 20:26 Rosuvastatin 20 Mg Tab PO 80 mg HS EDMAR Administration Sodium Chloride 10 ml 09/12/20 10:50 09/20/20 07:57 Flush - Normal Saline 10 Ml Syringe IVF 10 ml PRN PRN Administration Saline Flush Sucralfate 1 gm 09/21/20 11:30 09/21/20 12:04 Sucralfate 1 Gm Tab PO 1 gm ACHS EDMAR Administration Zolpidem Tartrate 5 mg 09/13/20 12:00 09/20/20 20:27 Zolpidem Tartrate 5 Mg Tab PO 5 mg HSPRN PRN Administration Insomnia - Exam Neck: negative: supple, symmetric, no JVD, no thyromegaly, no lymphadenopathy, no carotid bruit, JVD Heart: negative: RRR, no murmur, no gallops, no rubs, normal peripheral pulses, irregular, diminshed peripheral pulses, murmur present, II/IV, III/IV Respiratory: negative: CTAB, no wheezes, no rales, no ronchi, normal chest expansion, no tachypnea, normal percussion, rales, rhonchi, tachypneic, wheezes Hosp A/P (1) Abdominal pain Code(s): R10.9 - UNSPECIFIED ABDOMINAL PAIN Status: Acute (2) Small bowel obstruction Code(s): K56.609 - UNSP INTESTNL OBST, UNSP TO PARTIAL VERSUS COMPLETE OBST Status: Acute (3) A-fib Code(s): I48.91 - UNSPECIFIED ATRIAL FIBRILLATION Status: Acute (4) Postoperative haemorrhage Code(s): DQX2614 - Status: Acute (5) Postoperative haemorrhage Code(s): KZP5235 - Status: Acute (6) Pulmonary embolism Code(s): I26.99 - OTHER PULMONARY EMBOLISM WITHOUT ACUTE COR PULMONALE Status: Acute (7) Diabetes Code(s): E11.9 - TYPE 2 DIABETES MELLITUS WITHOUT COMPLICATIONS Status: Acute (8) CAD (coronary artery disease) Code(s): I25.10 - ATHSCL HEART DISEASE OF [place] CORONARY ARTERY W/O ANG PCTRS Status: Acute - Plan Patient has had pulmonary embolism in 2002 according to her she states it was post surgery. She also has a history of atrial fibrillation underwent an ablation in 2014. She follows up with cardiology and electrophysiology. Patient currently is in normal sinus rhythm. She is on Eliquis 2.5 twice daily. Per records indicates that patient was on anticoagulation unclear if she was on Coumadin or Eliquis this was in May 2019. She underwent emergent surgery for incarcerated umbilical hernia. Postoperative her hospital course was complicated with massive bleeding. I will hold her Eliquis for now. She is currently in sinus rhythm. We will put on SCDs for now. She has been encourage d to ambulate. I believe Lovenox for DVT prophylaxis should be okay until surgeon is okay to resume anticoagulation. 09/13 pt underwent exploratory laparotomy and lysis of adhesions. she has nuclear medicine physician pump. she is on scd for dvt ppx. 09/14 will hold toradol for now since her creatinine has worsen a bit. pt is on nuclear medicine physician. will continue dvt ppx and scd. She has been encouraged to get up and move around. 09/15 pt's creatinine at baseline, eliquis restarted. will trend hh. pt tolerating clears encouraged to ambulate. 09/16 will continue eliquis for now, hh stable. pt encouraged to ambulate. 09/17 will continue to trend hh. pt still gets nauseated when she eats. Had one large diarrhea yest. will ambulate the pt. 09/18 will trend hh for now. KUB indicated ileus. pt encouraged to ambulate. Me dically she is stable. 09/19 will check cbc in am, will make protonix to bid and stop pepcid and add gi cocktail prn. 09/[address] abd/pel, will continue protonix. pt states that she had flatus. However she still gets nauseated. 09/21 pt now has a wound vac based on her ct finding. Her hh is low stable. will change protonix to oral and add carafate. she continues to have reflux. will check trops and get ekg.
[2020-09-21 19:34] LABS: Troponin I Less than 0.010 ng/mL (< 0.028)
[2020-09-21] MEDS: Rosuvastatin 20 MG TAB PO SCH (20:37)
[2020-09-21] MEDS: Zolpidem Tartrate 5 MG TAB PO PRN (23:32)
[2020-09-22] MEDS: HYDROcodone/Acetaminophen 10/325 mg Tablet PO PRN ×3 (05:53→18:03)
[2020-09-22] MEDS: diphenhydrAMINE 25 MG CAP PO PRN ×3 (05:55→18:03)
[2020-09-22] MEDS: Sodium Chloride 0.9% 1,000 ML IV SCH ×3 (06:10→23:49)
[2020-09-22] MEDS: Sucralfate 1 GM TAB PO SCH ×4 (08:04→21:29)
[2020-09-22] MEDS: Carvedilol 6.25 MG TAB PO SCH ×2 (08:05→21:30)
[2020-09-22] MEDS: Multivit, Therapeutic 1 TAB PO SCH (08:05)
[2020-09-22] MEDS: Ferrous Sulfate 325 MG TAB PO SCH ×2 (08:05→18:04)
[2020-09-22] MEDS: Apixaban 5 MG TAB PO SCH ×2 (08:06→21:31)
[2020-09-22] MEDS: Famotidine/PF 20 mg/2ml Vial SLOW IVP SCH (08:06)
[2020-09-22 08:13] LABS: Anion Gap 11 mmol/L (10-20); BUN (Urea Nitrogen) 5 mg/dL (9.8-20.1); Calc. Creatinine Clearance 62 mL/min (70-130); Calcium 9.6 mg/dL (7.8-10.44); Carbon Dioxide 22 mmol/L (23-31); Chloride 114 mmol/L (98-107); Estimated GFR-MDRD 43; Glucose 174 mg/dL (80-115); Sodium 143 mmol/L (136-145)
[2020-09-22] MEDS ORDERED: Metoclopramide HCl 10 MG/2 ML VIAL IVP SCH (12:00)
[2020-09-22] MEDS: HumaLOG 300 UNITS/3 ML VIAL SC PRN ×2 (12:17→15:47)
[2020-09-22 12:36] LABS: #Eosinphils 0.2 thou/uL (0.0-0.7); #Lymphocytes 1.8 thou/uL (1.20-3.40); #Monocytes 0.4 thou/uL (0.11-0.59); #Neutrophils 2.7 thou/uL (1.40-6.50); %Basophils 0.6 % (0.0-1.0); %Eosinophils 3.8 % (0.0-10.0); %Lymphocytes 35.3 % (21.0-51.0); %Monocytes 8.1 % (0.0-10.0); %Neutrophils 52.2 % (42.0-75.0); Hemoglobin 9.6 g/dL (12.0-16.0); MDiff Complete? YES; Mean Corpuscular HGB CONC 30.5 g/dL (32.0-36.0); Mean Corpuscular Hemoglobin 23.2 pg (27.0-31.0); Mean Platelet Volume 8.8 fL (7.4-10.4); Platelet Count 219 thou/uL (130-400); RBC Distribution Width 14.6 % (11.5-14.5); Red Blood Cell (RBC) Count 4.15 mill/uL (4.20-5.40); White Blood Cell (WBC) Count 5.1 thou/uL (4.8-10.8)
[2020-09-22 12:37] LABS: Hypochromia SLIGHT = 6-15 cells (100X) (0-5/hpf); Microcytosis SLIGHT = 6-15 cells (100X) (0-5/hpf); Platelet Morphology Comment Appears Adequate; Polychromasia SLIGHT = 2-3 cells (100X) (0-2/hpf); Schistocytes SLIGHT = 2-5 cells (100X) (0-1/hpf); Tear Drops SLIGHT = 2-5 cells (100X) (0-1/hpf)
--- NOTE | 2020-09-22 18:25 | PDOC.HOSPP ---
- Subjective Encounter Date: 09/22/20 Encounter Time: 10:30 Subjective: Patient up in bed still complains of some heartburn at times. - Objective Vital Signs & Weight: Vital Signs (12 hours) Temp Pulse Resp BP Pulse Ox 09/22/20 11:32 65 16 99 09/22/20 08:05 54 L 16 99 09/22/20 07:28 98.0 F 53 L 16 134/76 99 Weight Admit Weight 217 lb 12.8 oz Weight 217 lb 13.067 oz I&O: 09/21/20 09/22/20 09/23/20 06:59 06:59 06:59 Intake Total 240 240 Output Total 0 Balance 240 240 0 Result Diagrams: 09/22/20 11:37 09/22/20 07:28 Additional Labs: Accuchecks 09/22/20 09/22/20 09/22/20 15:47 11:38 04:21 POC Glucose 172 H 261 H 164 H 09/21/20 19:38 POC Glucose 201 H Hospitalist ROS - Review of Systems Respiratory: denies: cough, dry, shortness of breath, hemoptysis, SOB with excertion, pleuritic pain, sputum, wheezing, other Cardiovascular: denies: chest pain, palpitations, orthopnea, paroxysmal noc. dyspnea, edema, light headedness, other Gastrointestinal: reports: abdominal pain Genitourinary: denies: dysuria, frequency, incontinence, hematuria, retention, other - Medication Medications: Active Medications Generic Name Dose Route Start Last Admin Trade Name Freq PRN Reason Stop Dose Admin Hydrocodone Bitart/Acetaminophen 1 tab 09/16/20 07:38 09/16/20 20:08 Hydrocodone/Acetaminophen 10/325 Mg Tablet PO 1 tab Q4H PRN Administration Mild-Moderate Pain (1-5) Hydrocodone Bitart/Acetaminophen 2 tab 09/16/20 07:38 09/22/20 18:03 Hydrocodone/Acetaminophen 10/325 Mg Tablet PO 2 tab Q4H PRN Administration Moderate to Severe Pain (6-10) Apixaban 5 mg 09/15/20 09:00 09/22/20 08:06 Apixaban 5 Mg Tab PO 5 mg BID EDMAR Administration Bisacodyl 10 mg 09/19/20 11:38 09/19/20 12:44 Bisacodyl 10 Mg Supp [place] 10 mg Q8H PRN Administration Constipation Carvedilol 12.5 mg 09/14/20 21:00 09/22/20 08:05 Carvedilol 6.25 Mg Tab PO 12.5 mg BID EDMAR Administration Lidocaine HCl 10 ml/ Al 0 ml 09/19/20 13:37 09/21/20 16:58 Hydroxide/Mg Hydroxide 30 ml SSW 1 dose BID PRN Administration Sore Throat Diphenhydramine HCl 25 mg 09/13/20 12:00 09/15/20 17:33 Diphenhydramine 50 Mg/Ml Vial IM/IV 25 mg Q3H PRN Administration Itching Diphenhydramine HCl 25 mg 09/13/20 12:00 09/22/20 18:03 Diphenhydramine 25 Mg Cap PO 25 mg Q3H PRN Administration Itching Ferrous Sulfate 325 mg 09/14/20 17:00 09/22/20 18:04 Ferrous Sulfate 325 Mg Tab PO 325 mg BID-WM EDMAR Administration Sodium Chloride 1,000 mls @ 50 mls/hr 09/16/20 07:39 09/22/20 15:47 Normal Saline 0.9% IV 1,000 mls .Q20H EDMAR Administration Insulin Human Lispro 0 units 09/12/20 14:50 09/22/20 15:47 Humalog 300 Units/3 Ml Vial SC 2 unit .MILD SLIDING SCALE PRN Administration Mild Correctional Scale Morphine Sulfate 4 mg 09/16/20 07:38 09/21/20 10:07 Morphine 4 Mg/Ml Vial SLOW IVP 4 mg Q4H PRN Administration Severe Pain (7-10) Multivitamins 1 tab 09/15/20 09:00 09/22/20 08:05 Multivit, Therapeutic 1 Tab PO 1 tab DAILY EDMAR Administration Ondansetron HCl 4 mg 09/13/20 12:00 09/21/20 02:23 Ondansetron Pf 4 Mg/2 Ml Vial IVP 4 mg Q6H PRN Administration Nausea/Vomiting Pantoprazole Sodium 40 mg 09/22/20 09:00 09/22/20 08:06 Pantoprazole 40 Mg Tab PO 40 mg DAILY EDMAR Administration Rosuvastatin Calcium 80 mg 09/15/20 21:00 09/21/20 20:37 Rosuvastatin 20 Mg Tab PO 80 mg HS EDMAR Administration Sodium Chloride 10 ml 09/12/20 10:50 09/20/20 07:57 Flush - Normal Saline 10 Ml Syringe IVF 10 ml PRN PRN Administration Saline Flush Sucralfate 1 gm 09/21/20 11:30 09/22/20 18:04 Sucralfate 1 Gm Tab PO 1 gm ACHS EDMAR Administration Zolpidem Tartrate 5 mg 09/13/20 12:00 09/21/20 23:32 Zolpidem Tartrate 5 Mg Tab PO 5 mg HSPRN PRN Administration Insomnia - Exam Neck: negative: supple, symmetric, no JVD, no thyromegaly, no lymphadenopathy, no carotid bruit, JVD Heart: negative: RRR, no murmur, no gallops, no rubs, normal peripheral pulses, irregular, diminshed peripheral pulses, murmur present, II/IV, III/IV Respiratory: negative: CTAB, no wheezes, no rales, no ronchi, normal chest expansion, no tachypnea, normal percussion, rales, rhonchi, tachypneic, wheezes Gastrointestinal: negative: soft, non-tender, non-distended, normal bowel sounds, no palpable masses, no hepatomegaly, no splenomegaly, no bruit, no guarding, no rigidity, tender to palpation, distended, diminished bowl sounds, voluntary guarding Hosp A/P (1) Abdominal pain Code(s): R10.9 - UNSPECIFIED ABDOMINAL PAIN Status: Acute (2) Small bowel obstruction Code(s): K56.609 - UNSP INTESTNL OBST, UNSP TO PARTIAL VERSUS COMPLETE OBST Status: Acute (3) A-fib Code(s): I48.91 - UNSPECIFIED ATRIAL FIBRILLATION Status: Acute (4) Postoperative haemorrhage Code(s): [id number] - Status: Acute (5) Postoperative haemorrhage Code(s): ILP5668 - Status: Acute (6) Pulmonary embolism Code(s): I26.99 - OTHER PULMONARY EMBOLISM WITHOUT ACUTE COR PULMONALE Status: Acute (7) Diabetes Code(s): E11.9 - TYPE 2 DIABETES MELLITUS WITHOUT COMPLICATIONS Status: Acute (8) CAD (coronary artery disease) Code(s): I25.10 - ATHSCL HEART DISEASE OF [place] CORONARY ARTERY W/O ANG PCTRS Status: Acute - Plan Patient has had pulmonary embolism in 2002 according to her she states it was post surgery. She also has a history of atrial fibrillation underwent an ablation in 2014. She follows up with cardiology and electrophysiology. Patient currently is in normal sinus rhythm. She is on Eliquis 2.5 twice daily. Per records indicates that patient was on anticoagulation unclear if she was on Coumadin or Eliquis this was in May 2019. She underwent emergent surgery for incarcerated umbilical hernia. Postoperative her hospital course was c omplicated with massive bleeding. I will hold her Eliquis for now. She is currently in sinus rhythm. We will put on SCDs for now. She has been encouraged to ambulate. I believe Lovenox for DVT prophylaxis should be okay until surgeon is okay to resume anticoagulation. 09/13 pt underwent exploratory laparotomy and lysis of adhesions. she has housekeeping staff pump. she is on scd for dvt ppx. 09/14 will hold toradol for now since her creatinine has worsen a bit. pt is on housekeeping staff. will continue dvt ppx and scd. She has been encouraged to get up and move around. 09/15 pt's creatinine at baseline, eliquis restarted. will trend hh. pt tolerating clears encouraged to ambulate. 09/16 will continue eliquis for now, hh stable. pt encouraged to ambulate. 09/17 will continue to trend hh. pt still gets nauseated when she eats. Had one large diarrhea yest. will ambulate the pt. 09/18 will trend hh for now. KUB indicated ileus. pt encouraged to ambulate. Medically she is stable. 09/19 will check cbc in am, will make protonix to bid and stop pepcid and add gi cocktail prn. 09/[address] abd/pel, will continue protonix. pt states that she had flatus. However she still gets nauseated. 09/21 pt now has a wound vac based on her ct finding. Her hh is low stable. will change protonix to oral and add carafate. she continues to have reflux. will check trops and get ekg. 09/22 patient's culture indicated Pseudomonas will start patient on Cipro. Will give 1 dose of Reglan since patient feels that she feels full and has been having significant amount of heartburn. She is currently on Carafate and Protonix. Her troponins were negative. We will continue to monitor. I did notify the surgeon about culture. Patient may require a gastric emptying study as outpatient.
[2020-09-22] MEDS: Rosuvastatin 20 MG TAB PO SCH (21:29)
[2020-09-23] MEDS: diphenhydrAMINE 25 MG CAP PO PRN ×3 (01:48→19:10)
[2020-09-23] MEDS: HYDROcodone/Acetaminophen 10/325 mg Tablet PO PRN ×3 (02:24→19:11)
[2020-09-23] MEDS: Lidocaine 2% Viscous Solution 10 ML, Aluminum & Magnesium Hydroxide 30 ML SSW PRN (06:35)
[2020-09-23 07:59] LABS: #Basophils 0.1 thou/uL (0.0-0.2); #Eosinphils 0.2 thou/uL (0.0-0.7); #Lymphocytes 1.9 thou/uL (1.20-3.40); #Monocytes 0.4 thou/uL (0.11-0.59); #Neutrophils 2.1 thou/uL (1.40-6.50); %Basophils 1.1 % (0.0-1.0); %Eosinophils 3.7 % (0.0-10.0); %Lymphocytes 41.6 % (21.0-51.0); %Monocytes 9.6 % (0.0-10.0); Hemoglobin 8.9 g/dL (12.0-16.0); Mean Corpuscular Hemoglobin 23.8 pg (27.0-31.0); Mean Corpuscular Volume 76.8 fL (78.0-98.0); Mean Platelet Volume 8.5 fL (7.4-10.4); Platelet Count 176 thou/uL (130-400); Platelet Count 186 thou/uL (130-400); RBC Distribution Width 14.5 % (11.5-14.5); Red Blood Cell (RBC) Count 3.73 mill/uL (4.20-5.40); White Blood Cell (WBC) Count 4.7 thou/uL (4.8-10.8)
[2020-09-23 08:17] LABS: Anion Gap 12 mmol/L (10-20); BUN (Urea Nitrogen) 8 mg/dL (9.8-20.1); Calc. Creatinine Clearance 56 mL/min (70-130); Calcium 9.6 mg/dL (7.8-10.44); Carbon Dioxide 20 mmol/L (23-31); Chloride 114 mmol/L (98-107); Estimated GFR-MDRD 39; Glucose 204 mg/dL (80-115); Potassium 3.8 mmol/L (3.5-5.1); Sodium 142 mmol/L (136-145)
[2020-09-23] MEDS: Sucralfate 1 GM TAB PO SCH ×4 (08:29→20:33)
[2020-09-23] MEDS: Apixaban 5 MG TAB PO SCH ×2 (08:30→20:33)
[2020-09-23] MEDS: Ferrous Sulfate 325 MG TAB PO SCH ×2 (08:30→16:39)
[2020-09-23] MEDS: Multivit, Therapeutic 1 TAB PO SCH (08:30)
[2020-09-23] MEDS: Carvedilol 6.25 MG TAB PO SCH ×2 (08:30→20:33)
[2020-09-23] MEDS: HumaLOG 300 UNITS/3 ML VIAL SC PRN ×2 (11:50→16:39)
[2020-09-23] MEDS: Metoclopramide HCl 10 MG/2 ML VIAL IVP PRN (16:39)
[2020-09-23] MEDS: Sodium Chloride 0.9% 1,000 ML IV SCH ×2 (16:48→19:45)
--- NOTE | 2020-09-23 17:22 | PDOC.HOSPP ---
- Subjective Encounter Date: 09/23/20 Encounter Time: 17:20 Subjective: Ms. Truong was seen today in follow-up of incarcerated hernia, and SBO. She says today she continues to have what she calls heart burn. She says she feels a burning in her throat, which goes down towards her abdomen. She says it comes whenever it wants. There is no rhyme or reason to it. - Objective Vital Signs & Weight: Vital Signs (12 hours) Temp Pulse Resp BP Pulse Ox 09/23/20 11:50 65 16 99 09/23/20 07:54 97.5 F L 54 L 16 117/66 98 Weight Admit Weight 217 lb 12.8 oz Weight 217 lb 13.067 oz I&O: 09/22/20 09/23/20 09/24/20 06:59 06:59 06:59 Intake Total 240 1100 Output Total 0 0 Balance 240 1100 0 Result Diagrams: 09/23/20 07:46 09/23/20 07:46 Additional Labs: Accuchecks 09/23/20 09/23/20 09/22/20 15:43 04:28 19:31 POC Glucose 225 H 194 H 129 H Hospitalist ROS - Medication Medications: Active Medications Generic Name Dose Route Start Last Admin Trade Name Freq PRN Reason Stop Dose Admin Hydrocodone Bitart/Acetaminophen 1 tab 09/16/20 07:38 09/16/20 20:08 Hydrocodone/Acetaminophen 10/325 Mg Tablet PO 1 tab Q4H PRN Administration Mild-Moderate Pain (1-5) Hydrocodone Bitart/Acetaminophen 2 tab 09/16/20 07:38 09/23/20 11:49 Hydrocodone/Acetaminophen 10/325 Mg Tablet PO 2 tab Q4H PRN Administration Moderate to Severe Pain (6-10) Apixaban 5 mg 09/15/20 09:00 09/23/20 08:30 Apixaban 5 Mg Tab PO 5 mg BID EDMAR Administration Bisacodyl 10 mg 09/19/20 11:38 09/19/20 12:44 Bisacodyl 10 Mg Supp SC 10 mg Q8H PRN Administration Constipation Carvedilol 12.5 mg 09/14/20 21:00 09/23/20 08:30 Carvedilol 6.25 Mg Tab PO 12.5 mg BID EDMAR Administration Lidocaine HCl 10 ml/ Al 0 ml 09/19/20 13:37 09/23/20 06:35 Hydroxide/Mg Hydroxide 30 ml SSW 1 dose BID PRN Administration Sore Throat Diphenhydramine HCl 25 mg 09/13/20 12:00 09/15/20 17:33 Diphenhydramine 50 Mg/Ml Vial IM/IV 25 mg Q3H PRN Administration Itching Diphenhydramine HCl 25 mg 09/13/20 12:00 09/23/20 11:49 Diphenhydramine 25 Mg Cap PO 25 mg Q3H PRN Administration Itching Ferrous Sulfate 325 mg 09/14/20 17:00 09/23/20 16:39 Ferrous Sulfate 325 Mg Tab PO 325 mg BID-WM EDMAR Administration Sodium Chloride 1,000 mls @ 50 mls/hr 09/16/20 07:39 09/23/20 16:48 Normal Saline 0.9% IV 1,000 mls .Q20H EDMAR Administration Ciprofloxacin/Dextrose 400 mg/ 200 mls @ 200 mls/hr 09/22/20 22:00 09/23/20 08:57 Device IVPB 200 mls 1000,2200 EDMAR Administration Insulin Human Lispro 0 units 09/12/20 14:50 09/23/20 16:39 Humalog 300 Units/3 Ml Vial SC 3 unit .MILD SLIDING SCALE PRN Administration Mild Correctional Scale Metoclopramide HCl 10 mg 09/23/20 12:57 09/23/20 16:39 Metoclopramide Hcl 10 Mg/2 Ml Vial IVP 10 mg Q6H PRN Administration Nausea/Vomiting Morphine Sulfate 4 mg 09/16/20 07:38 09/21/20 10:07 Morphine 4 Mg/Ml Vial SLOW IVP 4 mg Q4H PRN Administration Severe Pain (7-10) Multivitamins 1 tab 09/15/20 09:00 09/23/20 08:30 Multivit, Therapeutic 1 Tab PO 1 tab DAILY EDMAR Administration Ondansetron HCl 4 mg 09/13/20 12:00 09/21/20 02:23 Ondansetron Pf 4 Mg/2 Ml Vial IVP 4 mg Q6H PRN Administration Nausea/Vomiting Pantoprazole Sodium 40 mg 09/22/20 09:00 09/23/20 08:29 Pantoprazole 40 Mg Tab PO 40 mg DAILY EDMAR Administration Rosuvastatin Calcium 80 mg 09/15/20 21:00 09/22/20 21:29 Rosuvastatin 20 Mg Tab PO 80 mg HS EDMAR Administration Sodium Chloride 10 ml 09/12/20 10:50 09/20/20 07:57 Flush - Normal Saline 10 Ml Syringe IVF 10 ml PRN PRN Administration Saline Flush Sucralfate 1 gm 09/21/20 11:30 09/23/20 16:39 Sucralfate 1 Gm Tab PO 1 gm ACHS EDMAR Administration Zolpidem Tartrate 5 mg 09/13/20 12:00 09/21/20 23:32 Zolpidem Tartrate 5 Mg Tab PO 5 mg HSPRN PRN Administration Insomnia - Exam Eye: PERRL, anicteric sclera Heart: RRR, no murmur, no gallops, no rubs, normal peripheral pulses Respiratory: CTAB, no wheezes, no rales, no ronchi, normal chest expansion, no tachypnea, normal percussion Gastrointestinal: soft, non-distended, normal bowel sounds, tender to palpation (+ tendernes in the lower abdomen. No rebound or guarding) Extremities: no cyanosis, no edema Hosp A/P (1) Incarcerated hernia Code(s): K46.0 - UNSP ABDOMINAL HERNIA WITH OBSTRUCTION, WITHOUT GANGRENE Status: Acute (2) Pulmonary embolism Code(s): I26.99 - OTHER PULMONARY EMBOLISM WITHOUT ACUTE COR PULMONALE Status: Acute (3) Small bowel obstruction Code(s): K56.609 - UNSP INTESTNL OBST, UNSP TO PARTIAL VERSUS COMPLETE OBST Status: Acute (4) GERD (gastroesophageal reflux disease) Code(s): K21.9 - GASTRO-ESOPHAGEAL REFLUX DISEASE WITHOUT ESOPHAGITIS Status: Acute (5) CAD (coronary artery disease) Code(s): I25.10 - ATHSCL HEART DISEASE OF [place] CORONARY ARTERY W/O ANG PCTRS Status: Acute - Plan * Incerated Hernia- s/p exploratory lap and lysis of adhesions * Her diet has been advanced * GERD- continue Protonix and Carafate. Reglan as needed. If symptoms persist agree with Out patietn work-up * PE- Eliquis has been re-started * DM- blood glucose is stable
[2020-09-23] MEDS: Rosuvastatin 20 MG TAB PO SCH (20:32)
[2020-09-24] MEDS: Lidocaine 2% Viscous Solution 10 ML, Aluminum & Magnesium Hydroxide 30 ML SSW PRN (00:57)
[2020-09-24] MEDS: Metoclopramide HCl 10 MG/2 ML VIAL IVP PRN (05:05)
[2020-09-24 06:46] LABS: #Eosinphils 0.2 thou/uL (0.0-0.7); #Lymphocytes 2.2 thou/uL (1.20-3.40); #Monocytes 0.5 thou/uL (0.11-0.59); %Basophils 0.8 % (0.0-1.0); %Eosinophils 4.3 % (0.0-10.0); %Lymphocytes 44.4 % (21.0-51.0); %Monocytes 9.5 % (0.0-10.0); Hemoglobin 8.8 g/dL (12.0-16.0); Mean Corpuscular Hemoglobin 23.8 pg (27.0-31.0); Mean Corpuscular Volume 76.6 fL (78.0-98.0); Mean Platelet Volume 8.8 fL (7.4-10.4); Platelet Count 198 thou/uL (130-400); RBC Distribution Width 14.5 % (11.5-14.5); Red Blood Cell (RBC) Count 3.72 mill/uL (4.20-5.40)
[2020-09-24 07:06] LABS: Anion Gap 12 mmol/L (10-20); BUN (Urea Nitrogen) 8 mg/dL (9.8-20.1); Calc. Creatinine Clearance 59 mL/min (70-130); Calcium 9.8 mg/dL (7.8-10.44); Carbon Dioxide 19 mmol/L (23-31); Chloride 116 mmol/L (98-107); Estimated GFR-MDRD 41; Glucose 131 mg/dL (80-115); Potassium 3.6 mmol/L (3.5-5.1); Sodium 143 mmol/L (136-145)
[2020-09-24] MEDS: Sucralfate 1 GM TAB PO SCH ×4 (09:02→20:08)
[2020-09-24] MEDS: Carvedilol 6.25 MG TAB PO SCH ×2 (09:03→20:07)
[2020-09-24] MEDS: Ferrous Sulfate 325 MG TAB PO SCH ×2 (09:03→17:35)
[2020-09-24] MEDS: HYDROcodone/Acetaminophen 10/325 mg Tablet PO PRN ×2 (09:04→15:52)
[2020-09-24] MEDS: Multivit, Therapeutic 1 TAB PO SCH (09:04)
[2020-09-24] MEDS: Apixaban 5 MG TAB PO SCH ×2 (09:04→20:08)
[2020-09-24] MEDS: Sodium Chloride 0.9% 1,000 ML IV SCH (09:08)
[2020-09-24] MEDS: HumaLOG 300 UNITS/3 ML VIAL SC PRN ×2 (12:05→18:14)
[2020-09-24] MEDS: diphenhydrAMINE 25 MG CAP PO PRN ×2 (12:41→15:51)
--- NOTE | 2020-09-24 16:48 | PDOC.HOSPP ---
- Subjective Encounter Date: 09/24/20 Encounter Time: 16:44 Subjective: Ms. Truong was seen today in follow-up of incarcerated hernia, and SBO. She continues to have reflux symptoms. She says she has en episode where she felt the food come all the way up to her throat, and caused her to cough. - Objective Vital Signs & Weight: Vital Signs (12 hours) Temp Pulse Resp BP BP Pulse Ox 09/24/20 16:10 98.2 F 67 16 170/78 H 100 09/24/20 11:53 97.0 F L 67 18 141/70 H 97 09/24/20 09:03 122/73 09/24/20 08:00 98.8 F 97 18 119/79 98 Weight Admit Weight 217 lb 12.8 oz Weight 217 lb 13.067 oz I&O: 09/23/20 09/24/20 09/25/20 06:59 06:59 06:59 Intake Total 1100 1440 Output Total 0 0 Balance 1100 1440 Result Diagrams: 09/24/20 06:07 09/24/20 06:07 Additional Labs: Accuchecks 09/24/20 09/24/20 09/24/20 16:10 11:38 04:30 POC Glucose 172 H 197 H 128 H 09/23/20 20:03 POC Glucose 157 H Hospitalist ROS - Medication Medications: Active Medications Generic Name Dose Route Start Last Admin Trade Name Freq PRN Reason Stop Dose Admin Hydrocodone Bitart/Acetaminophen 1 tab 09/16/20 07:38 09/16/20 20:08 Hydrocodone/Acetaminophen 10/325 Mg Tablet PO 1 tab Q4H PRN Administration Mild-Moderate Pain (1-5) Hydrocodone Bitart/Acetaminophen 2 tab 09/16/20 07:38 09/24/20 15:52 Hydrocodone/Acetaminophen 10/325 Mg Tablet PO 2 tab Q4H PRN Administration Moderate to Severe Pain (6-10) Apixaban 5 mg 09/15/20 09:00 09/24/20 09:04 Apixaban 5 Mg Tab PO 5 mg BID EDMAR Administration Bisacodyl 10 mg 09/19/20 11:38 09/19/20 12:44 Bisacodyl 10 Mg Supp [place] 10 mg Q8H PRN Administration Constipation Carvedilol 12.5 mg 09/14/20 21:00 09/24/20 09:03 Carvedilol 6.25 Mg Tab PO 12.5 mg BID EDMAR Administration Lidocaine HCl 10 ml/ Al 0 ml 09/19/20 13:37 09/24/20 00:57 Hydroxide/Mg Hydroxide 30 ml SSW 1 dose BID PRN Administration Sore Throat Diphenhydramine HCl 25 mg 09/13/20 12:00 09/15/20 17:33 Diphenhydramine 50 Mg/Ml Vial IM/IV 25 mg Q3H PRN Administration Itching Diphenhydramine HCl 25 mg 09/13/20 12:00 09/24/20 15:51 Diphenhydramine 25 Mg Cap PO 25 mg Q3H PRN Administration Itching Ferrous Sulfate 325 mg 09/14/20 17:00 09/24/20 09:03 Ferrous Sulfate 325 Mg Tab PO 325 mg BID-WM EDMAR Administration Sodium Chloride 1,000 mls @ 50 mls/hr 09/16/20 07:39 09/24/20 09:08 Normal Saline 0.9% IV 1,000 mls .Q20H EDMAR Administration Ciprofloxacin/Dextrose 400 mg/ 200 mls @ 200 mls/hr 09/22/20 22:00 09/24/20 09:07 Device IVPB 200 mls 1000,2200 EDMAR Administration Insulin Human Lispro 0 units 09/12/20 14:50 09/24/20 12:05 Humalog 300 Units/3 Ml Vial SC 2 unit .MILD SLIDING SCALE PRN Administration Mild Correctional Scale Metoclopramide HCl 10 mg 09/23/20 12:57 09/24/20 05:05 Metoclopramide Hcl 10 Mg/2 Ml Vial IVP 10 mg Q6H PRN Administration Nausea/Vomiting Morphine Sulfate 4 mg 09/16/20 07:38 09/21/20 10:07 Morphine 4 Mg/Ml Vial SLOW IVP 4 mg Q4H PRN Administration Severe Pain (7-10) Multivitamins 1 tab 09/15/20 09:00 09/24/20 09:04 Multivit, Therapeutic 1 Tab PO 1 tab DAILY EDMAR Administration Ondansetron HCl 4 mg 09/13/20 12:00 09/21/20 02:23 Ondansetron Pf 4 Mg/2 Ml Vial IVP 4 mg Q6H PRN Administration Nausea/Vomiting Pantoprazole Sodium 40 mg 09/22/20 09:00 09/24/20 09:04 Pantoprazole 40 Mg Tab PO 40 mg DAILY EDMAR Administration Rosuvastatin Calcium 80 mg 09/15/20 21:00 09/23/20 20:32 Rosuvastatin 20 Mg Tab PO 80 mg HS EDMAR Administration Sodium Chloride 10 ml 09/12/20 10:50 09/20/20 07:57 Flush - Normal Saline 10 Ml Syringe IVF 10 ml PRN PRN Administration Saline Flush Sucralfate 1 gm 09/21/20 11:30 09/24/20 12:05 Sucralfate 1 Gm Tab PO 1 gm ACHS EDMAR Administration Zolpidem Tartrate 5 mg 09/13/20 12:00 09/21/20 23:32 Zolpidem Tartrate 5 Mg Tab PO 5 mg HSPRN PRN Administration Insomnia - Exam Eye: PERRL, anicteric sclera Heart: RRR, no murmur, no gallops, no rubs, normal peripheral pulses Respiratory: CTAB, no wheezes, no rales, no ronchi, normal chest expansion, no tachypnea, normal percussion Gastrointestinal: soft, non-tender, non-distended, normal bowel sounds, no palpable masses, no hepatomegaly Extremities: no cyanosis, 1+ LE edema Hosp A/P (1) Incarcerated hernia Code(s): K46.0 - UNSP ABDOMINAL HERNIA WITH OBSTRUCTION, WITHOUT GANGRENE Status: Acute (2) Pulmonary embolism Code(s): I26.99 - OTHER PULMONARY EMBOLISM WITHOUT ACUTE COR PULMONALE Status: Acute (3) Small bowel obstruction Code(s): K56.609 - UNSP INTESTNL OBST, UNSP TO PARTIAL VERSUS COMPLETE OBST Status: Acute (4) GERD (gastroesophageal reflux disease) Code(s): K21.9 - GASTRO-ESOPHAGEAL REFLUX DISEASE WITHOUT ESOPHAGITIS Status: Acute (5) CAD (coronary artery disease) Code(s): I25.10 - ATHSCL HEART DISEASE OF [place] CORONARY ARTERY W/O ANG PCTRS Status: Acute - Plan * Incarcerated Hernia- s/p exploratory lap and lysis of adhesions * Continue with current diet * GERD- continue Protonix and Carafate. * She has at least a 30 year history of DM, and she could have diabetic gastropathy as well, she will plan to have out patient work-up as discussed * Will schedule reglan * PE- Eliquis has been re-started * DM- blood glucose is stable
[2020-09-24] MEDS: Metoclopramide HCl 10 MG TAB PO SCH ×2 (17:36→20:08)
[2020-09-24] MEDS: Rosuvastatin 20 MG TAB PO SCH (20:06)
--- NOTE | 2020-09-25 05:09 | PRG ---
DATE OF SERVICE: 09/24/2020 SUBJECTIVE: The patient was seen this evening during rounds. She was lying in bed, resting comfortably and asleep with no signs of acute distress. Trauma team evaluating the patient while Dr. Woodruff is out. Nursing earlier today reported tolerating diet and passing gas. OBJECTIVE: VITAL SIGNS: Temperature 97.9, pulse 73, respirations 16, oxygen saturation 100% on room air, blood pressure 153/80. GENERAL: Well-appearing elderly female, lying in bed with no signs of acute distress. PULMONARY: Equal chest rise and fall. No signs of acute respiratory distress. ASSESSMENT: Postop day 11 status post exploratory laparotomy, removal of granuloma, repair of recurrent ventral hernia, and lysis of adhesions. PLAN: Continue current diet and pain regimen. Continue physical and occupational therapy. Continue to monitor for further return of bowel function. Trauma team to continue to evaluate the patient until Dr. Woodruff returns. Job ID: [id number]
[2020-09-25 07:43] VITALS: TEMP 98.2
[2020-09-25] MEDS: HYDROcodone/Acetaminophen 10/325 mg Tablet PO PRN ×3 (08:51→20:41)
[2020-09-25] MEDS: Metoclopramide HCl 10 MG TAB PO SCH ×4 (08:56→20:20)
[2020-09-25] MEDS: Ferrous Sulfate 325 MG TAB PO SCH ×2 (08:56→17:02)
[2020-09-25] MEDS: Multivit, Therapeutic 1 TAB PO SCH (08:56)
[2020-09-25] MEDS: Carvedilol 6.25 MG TAB PO SCH ×2 (08:57→20:21)
[2020-09-25] MEDS: Apixaban 5 MG TAB PO SCH ×2 (08:58→20:21)
[2020-09-25] MEDS: Sucralfate 1 GM TAB PO SCH ×4 (08:58→20:20)
[2020-09-25] MEDS: diphenhydrAMINE 25 MG CAP PO PRN ×3 (10:20→20:41)
[2020-09-25] MEDS: Sodium Chloride 0.9% 1,000 ML IV SCH (11:52)
[2020-09-25] MEDS: HumaLOG 300 UNITS/3 ML VIAL SC PRN ×2 (12:45→17:03)
--- NOTE | 2020-09-25 15:18 | PDOC.HOSPP ---
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 She does not have any complaints. - Objective Vital Signs & Weight: Vital Signs (12 hours) Temp Pulse Resp BP BP Pulse Ox 09/25/20 08:57 153/80 H 09/25/20 07:42 98.2 F 62 16 126/55 L 98 Weight Admit Weight 217 lb 12.8 oz Weight 217 lb 13.067 oz I&O: 09/24/20 09/25/20 09/26/20 06:59 06:59 06:59 Intake Total 1440 1234 320 Output Total 0 Balance 1440 1234 320 Result Diagrams: 09/24/20 06:07 09/24/20 06:07 Additional Labs: Accuchecks 09/25/20 09/25/20 09/24/20 11:23 06:12 19:48 POC Glucose 216 H 156 H 232 H 09/24/20 09/23/20 16:10 11:44 POC Glucose 172 H 251 H Hospitalist ROS - Medication Medications: Active Medications Generic Name Dose Route Start Last Admin Trade Name Freq PRN Reason Stop Dose Admin Hydrocodone Bitart/Acetaminophen 1 tab 09/16/20 07:38 09/16/20 20:08 Hydrocodone/Acetaminophen 10/325 Mg Tablet PO 1 tab Q4H PRN Administration Mild-Moderate Pain (1-5) Hydrocodone Bitart/Acetaminophen 2 tab 09/16/20 07:38 09/25/20 08:51 Hydrocodone/Acetaminophen 10/325 Mg Tablet PO 2 tab Q4H PRN Administration Moderate to Severe Pain (6-10) Apixaban 5 mg 09/15/20 09:00 09/25/20 08:58 Apixaban 5 Mg Tab PO 5 mg BID EDMAR Administration Bisacodyl 10 mg 09/19/20 11:38 09/19/20 12:44 Bisacodyl 10 Mg Supp [place] 10 mg Q8H PRN Administration Constipation Carvedilol 12.5 mg 09/14/20 21:00 09/25/20 08:57 Carvedilol 6.25 Mg Tab PO 12.5 mg BID EDMAR Administration Lidocaine HCl 10 ml/ Al 0 ml 09/19/20 13:37 09/24/20 00:57 Hydroxide/Mg Hydroxide 30 ml SSW 1 dose BID PRN Administration Sore Throat Diphenhydramine HCl 25 mg 09/13/20 12:00 09/15/20 17:33 Diphenhydramine 50 Mg/Ml Vial IM/IV 25 mg Q3H PRN Administration Itching Diphenhydramine HCl 25 mg 09/13/20 12:00 09/25/20 10:20 Diphenhydramine 25 Mg Cap PO 25 mg Q3H PRN Administration Itching Ferrous Sulfate 325 mg 09/14/20 17:00 09/25/20 08:56 Ferrous Sulfate 325 Mg Tab PO 325 mg BID-WM EDMAR Administration Sodium Chloride 1,000 mls @ 50 mls/hr 09/16/20 07:39 09/25/20 11:52 Normal Saline 0.9% IV Not Given .Q20H EDMAR Ciprofloxacin/Dextrose 400 mg/ 200 mls @ 200 mls/hr 09/22/20 22:00 09/25/20 10:53 Device IVPB Not Given 1000,2200 [facility] Insulin Human Lispro 0 units 09/12/20 14:50 09/25/20 12:45 Humalog 300 Units/3 Ml Vial SC 3 unit .MILD SLIDING SCALE PRN Administration Mild Correctional Scale Metoclopramide HCl 10 mg 09/23/20 12:57 09/24/20 05:05 Metoclopramide Hcl 10 Mg/2 Ml Vial IVP 10 mg Q6H PRN Administration Nausea/Vomiting Metoclopramide HCl 10 mg 09/24/20 17:00 09/25/20 12:45 Metoclopramide Hcl 10 Mg Tab PO 10 mg ACHS EDMAR Administration Morphine Sulfate 4 mg 09/16/20 07:38 09/21/20 10:07 Morphine 4 Mg/Ml Vial SLOW IVP 4 mg Q4H PRN Administration Severe Pain (7-10) Multivitamins 1 tab 09/15/20 09:00 09/25/20 08:56 Multivit, Therapeutic 1 Tab PO 1 tab DAILY EDMAR Administration Ondansetron HCl 4 mg 09/13/20 12:00 09/21/20 02:23 Ondansetron Pf 4 Mg/2 Ml Vial IVP 4 mg Q6H PRN Administration Nausea/Vomiting Pantoprazole Sodium 40 mg 09/22/20 09:00 09/25/20 08:56 Pantoprazole 40 Mg Tab PO 40 mg DAILY EDMAR Administration Rosuvastatin Calcium 80 mg 09/15/20 21:00 09/24/20 20:06 Rosuvastatin 20 Mg Tab PO 80 mg HS EDMAR Administration Sodium Chloride 10 ml 09/12/20 10:50 09/20/20 07:57 Flush - Normal Saline 10 Ml Syringe IVF 10 ml PRN PRN Administration Saline Flush Sucralfate 1 gm 09/21/20 11:30 09/25/20 12:45 Sucralfate 1 Gm Tab PO 1 gm ACHS EDMAR Administration Zolpidem Tartrate 5 mg 09/13/20 12:00 09/21/20 23:32 Zolpidem Tartrate 5 Mg Tab PO 5 mg HSPRN PRN Administration Insomnia - Exam Eye: PERRL, anicteric sclera Heart: RRR, no murmur, no gallops, no rubs, normal peripheral pulses Respiratory: CTAB, no wheezes, no rales, no ronchi, normal chest expansion Gastrointestinal: soft, non-tender, normal bowel sounds, no palpable masses, tender to palpation Extremities: no cyanosis, no edema Hosp A/P (1) Incarcerated hernia Code(s): K46.0 - UNSP ABDOMINAL HERNIA WITH OBSTRUCTION, WITHOUT GANGRENE Status: Acute (2) Pulmonary embolism Code(s): I26.99 - OTHER PULMONARY EMBOLISM WITHOUT ACUTE COR PULMONALE Status: Acute (3) Small bowel obstruction Code(s): K56.609 - UNSP INTESTNL OBST, UNSP TO PARTIAL VERSUS COMPLETE OBST Status: Acute (4) GERD (gastroesophageal reflux disease) Code(s): K21.9 - GASTRO-ESOPHAGEAL REFLUX DISEASE WITHOUT ESOPHAGITIS Status: Acute (5) CAD (coronary artery disease) Code(s): I25.10 - ATHSCL HEART DISEASE OF [place] CORONARY ARTERY W/O ANG PCTRS Status: Acute - Plan * Incarcerated Hernia- s/p exploratory lap and lysis of adhesions * She is tolerating the current diet * She has been cleared for discharge by surgery * GERD- continue Protonix and Carafate. * Probable Diabetic gastroparesis- this can be worked up as an out aptient * Stable for discharge home
--- NOTE | 2020-09-25 17:42 | PDOC.DS.DS ---
Provider - Provider Date of Admission: 09/12/20 09:08 Date of Discharge: 09/25/20 Admitting Provider: Wale Woodruff Jr, MD Consultations: Cardiology, General Surgery Primary Care Physician: Walker Valenzuela MD Course - Hospital Course Hospital Course: Ms. Truong is a 60-year-old female that has a history of diabetes mellitus for at least 30 years. She also has a history of previous abdominal surgeries. She presented to the emergency room complaining of abdominal pain. The full details of which are outlined in the history and physical. She had a CT scan of the abdomen and pelvis which demonstrated a ventral hernia which was incarcerated a nd also had a small bowel obstruction. She underwent ventral hernia repair with lysis of adhesions. Postoperatively she developed a seroma which was demonstrated by repeat CT scan. The fluid aspirated from the seroma grew Pseudomonas and Enterobacter. She was placed on Cipro. These organisms were sensitive to these antibiotics. Her postoperative course was complicated by severe reflux symptoms. She was placed on Carafate as well as Protonix. This was followed by [facility] after these modalities did not improve her symptoms. She has a long history of diabetes mellitus and has been recommended to undergo an outpatient gastric emptying study to see whether or not she has diabetic gastroparesis. Also with the severe reflux she may also benefit from a repeat upper endoscopy and may be even a barium swallow given that she had some symptoms of dysphagia as well. Pertinent Studies: CT scan of the abdomen and pelvis Exploratory laporotomy with ventral hernia repair, and lysis of adhesions Repeat CT scan of the abdomen and pelvis - Labs Lab Results: 09/24/20 06:07 09/24/20 06:07 Abnormal Lab Results - Last 48 hrs 09/24/20 06:07: Chloride 116 H, Carbon Dioxide 19 L, BUN 8 L, Creatinine 1.57 H 09/24/20 06:07: RBC 3.72 L, Hgb 8.8 L, Hct 28.5 L, MCV 76.6 L, MCH 23.8 L, MCHC 31.0 L, Neutrophils % 41.0 L Microbiology - Entire Visit 09/20/20 15:00 Misc:See specimen description - Wound Body Fluid Culture - Final Enterobacter aerogenes Pseudomonas aeruginosa Pseudomonas aeruginosa#2 - Physical Exam Vitals: Vital Signs (12 hours) Temp Pulse Resp BP BP Pulse Ox 09/25/20 08:57 153/80 H 09/25/20 07:42 98.2 F 62 16 126/55 L 98 Weight Admit Weight 217 lb 12.8 oz Weight 217 lb 13.067 oz Physical Exam: The patient was seen and examined on the day of discharge. Problem - Problem (1) Small bowel obstruction Code(s): K56.609 - UNSP INTESTNL OBST, UNSP TO PARTIAL VERSUS COMPLETE OBST Status: Acute (2) Incarcerated hernia Code(s): K46.0 - UNSP ABDOMINAL HERNIA WITH OBSTRUCTION, WITHOUT GANGRENE Status: Acute (3) Seroma after procedure Code(s): MES1492 - Status: Acute (4) Pulmonary embolism Code(s): I26.99 - OTHER PULMONARY EMBOLISM WITHOUT ACUTE COR PULMONALE Status: Chronic (5) GERD (gastroesophageal reflux disease) Code(s): K21.9 - GASTRO-ESOPHAGEAL REFLUX DISEASE WITHOUT ESOPHAGITIS Status: Acute (6) CAD (coronary artery disease) Code(s): I25.10 - ATHSCL HEART DISEASE OF [place] CORONARY ARTERY W/O ANG PCTRS Status: Chronic (7) Hypertension Code(s): I10 - ESSENTIAL (PRIMARY) HYPERTENSION Status: Acute (8) Diabetes mellitus type 2 in obese Code(s): E11.69 - TYPE 2 DIABETES MELLITUS WITH OTHER SPECIFIED COMPLICATION; E66.9 - OBESITY, UNSPECIFIED Status: Chronic - Time spent with Patient (mins): 30 Plan - Discharge Medications Prescriptions: Ciprofloxacin [Cipro] 500 mg PO BID #14 tab Saccharomyces boulardii [Florastor] 250 mg PO DAILY #30 cap Pantoprazole [Protonix] 40 mg PO BID #60 tab Metoclopramide HCl [Reglan] 10 mg PO TID PRN #40 tab PRN Reason: Heartburn Or Indigestion Home Medications: Medication Instructions Recorded Confirmed Type Apixaban [Eliquis] 5 mg PO BID 09/12/20 09/12/20 History Aspirin [Adult Low Dose Aspirin EC] 81 mg PO DAILY 09/12/20 09/12/20 History Calcium Carbonate [Calcium] 1,000 mg PO HS 09/12/20 09/18/20 History Carvedilol [Coreg] 12.5 mg PO BID 09/12/20 09/12/20 History Evolocumab [Repatha Syringe] 09/12/20 History Furosemide 40 mg PO BID 09/12/20 09/12/20 History Insulin Glargine,Hum.Rec.Anlog 40 units DAILY 09/12/20 09/12/20 History [Lantus] Multivitamin 1,000 mg PO BID 09/12/20 09/12/20 History Rosuvastatin Calcium [Crestor] 80 mg PO DAILY 09/12/20 09/12/20 History Ciprofloxacin [Cipro] 500 mg PO BID #14 tab 09/25/20 Rx Metoclopramide HCl [Reglan] 10 mg PO TID PRN #40 tab 09/25/20 Rx Pantoprazole [Protonix] 40 mg PO BID #60 tab 09/25/20 Rx Saccharomyces boulardii [Florastor] 250 mg PO DAILY #30 cap 09/25/20 Rx Allergies: No Known Allergies Allergy (Unverified 09/12/20 12:42) FROM ESD REPORT - Discharge Instructions Activity:: Activity as Tolerated Nourishment:: Diabetic Diet, Heart Healthy Diet Therapies:: Wound Care - Follow up Plan Referrals: Wound Care - [place] [Outside] - 09/26/20 10:45 am (Outpatient wound care referral for wound vac dressing change. ) Wale Woodruff Jr, MD [Active] - 14 Days Walker Valenzuela MD [Primary Care Provider] - Disposition: HOME Quality - Care Measures CORE MEASURES:: N/A
[2020-09-25] MEDS ORDERED: Ciprofloxacin 500 MG TAB PO SCH (18:30)
[2020-09-25 19:47] VITALS: BP 159/85
[2020-09-25] MEDS: Rosuvastatin 20 MG TAB PO SCH (20:20)
--- NOTE | 2020-09-26 07:13 | EKG ---
Test Reason : Blood Pressure : / mmHG Vent. Rate : 058 BPM Atrial Rate : 058 BPM P-R Int : 190 ms QRS Dur : 102 ms QT Int : 448 ms P-R-T Axes : 067 036 053 degrees QTc Int : 439 ms Sinus bradycardia Nonspecific T wave abnormality Abnormal ECG Confirmed by HEMAL SHEA MD ([id number]) on 09/26/2020 7:13:22 AM Referred By: HAI Confirmed By:HEMAL SHEA MD
== END 2020-09-25 21:00 | disposition home or self-care (01) | DRG 336 ==
LOC: ERS 06:20 → T4-B 09:08
PROVIDERS: ADMIT Surgery; ATTEND Internal Medicine
PROC: 0DNW0ZZ Release Peritoneum, Open Approach (ICD-10-PCS; principal; 2020-09-13)
PROC: 0WQF0ZZ Repair Abdominal Wall, Open Approach (ICD-10-PCS; 2020-09-13)
PROC: 0JB80ZZ Excision of Abdomen Subcutaneous Tissue and Fascia, Open Approach (ICD-10-PCS; 2020-09-13)
DX: K43.6 Other and unspecified ventral hernia with obstruction, without gangrene (principal); K56.7 Ileus, unspecified; K91.873 Postprocedural seroma of a digestive system organ or structure following other procedure; I27.82 Chronic pulmonary embolism; Z20.828 Contact with and (suspected) exposure to other viral communicable diseases; E11.9 Type 2 diabetes mellitus without complications; I25.10 Atherosclerotic heart disease of native coronary artery without angina pectoris; I10 Essential (primary) hypertension; I48.91 Unspecified atrial fibrillation; E66.01 Morbid (severe) obesity due to excess calories; M79.7 Fibromyalgia; G47.33 Obstructive sleep apnea (adult) (pediatric); E78.5 Hyperlipidemia, unspecified; K66.8 Other specified disorders of peritoneum; K21.9 Gastro-esophageal reflux disease without esophagitis; B96.5 Pseudomonas (aeruginosa) (mallei) (pseudomallei) as the cause of diseases classified elsewhere; B96.89 Other specified bacterial agents as the cause of diseases classified elsewhere; Y83.8 Other surgical procedures as the cause of abnormal reaction of the patient, or of later complication, without mention of misadventure at the time of the procedure; Z95.1 Presence of aortocoronary bypass graft; Z98.84 Bariatric surgery status; Z79.01 Long term (current) use of anticoagulants; Z68.35 Body mass index [BMI] 35.0-35.9, adult; Z79.899 Other long term (current) drug therapy; Z79.82 Long term (current) use of aspirin; Z79.4 Long term (current) use of insulin
CPT/HCPCS: 36415; 36416; 71045; 74018; 74177; 80048; 80053; 81003; 81015; 82565; 83690; 83735; 84100; 84484; 85014; 85018; 85025; 85049; 87070; 87077; 87186; 87205; 87635; 88305; 93005; 93010; 96361; 96374; 96375; C9113; J0694; J0744; J1100; J1170; J1200; J1885; J2250; J2270; J2405; J2550; J2704; J2765; J3010; Q0163; Q9967; S0020; S0028; U0003